=== PATIENT | male | born 1960 | race African-American/Black ===

== ENCOUNTER 2019-06-26 12:46 | Inpatient (IN) | payer OTHER ==
[2019-06-26 14:13] VITALS: BMI 22.3
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
[2019-06-26] MEDS ORDERED: NICOTINE POLACRILEX 2 MG GUM BUC PRN (17:49)
[2019-06-26] MEDS ORDERED: MENTHOL/PHENOL 1 EACH UD MM PRN (17:49)
[2019-06-26] MEDS ORDERED: ONDANSETRON *ODT* 4 MG TABLET SL PRN (17:49)
[2019-06-26] MEDS ORDERED: MELATONIN 5 MG TABLETS PO PRN (17:49)
[2019-06-26] MEDS ORDERED: hydrOXYzine PAMOATE 25 MG CAPSULE (FP) PO PRN (17:49)
[2019-06-26] MEDS ORDERED: P-EPHED 60MG/TRIPROLIDI 2.5MG TABLET PO PRN (17:49)
[2019-06-26] MEDS ORDERED: IBUPROFEN 400 MG TABLET (FP) PO PRN (17:49)
[2019-06-26] MEDS ORDERED: BISMUTH SUBSALICYLATE 524 MG/30 ML UD PO PRN (17:49)
[2019-06-26] MEDS ORDERED: ALBUTEROL SO4 8 GM HFA INHALER IH PRN (17:49)
[2019-06-26] MEDS ORDERED: guaiFENesin 200 MG/10 ML 10 ML UNIT-DOSE CUPS PO PRN (17:49)
[2019-06-26] MEDS ORDERED: MAGNESIUM CITRATE 300 ML BOTTLE PO PRN (17:49)
[2019-06-26] MEDS ORDERED: MAGNESIUM HYDROX 2400MG/30ML ORAL SUSPENSION 30 ML CUP PO PRN (17:49)
[2019-06-26] MEDS ORDERED: DICYCLOMINE HCL 10 MG CAPSULE PO PRN (17:49)
[2019-06-26] MEDS ORDERED: MAG HYDROX/AL HYDROX/SIMETH 30 ML UNIT-DOSE CUP PO PRN (17:49)
[2019-06-26] MEDS ORDERED: ACETAMINOPHEN 325 MG TABLET (FP) PO PRN ×2 (17:49)
[2019-06-26] MEDS ORDERED: METHADONE HCL 10 MG TABLET (FOR DETOX USE ONLY) PO ONE (21:15)
[2019-06-26] MEDS ORDERED: NALOXONE HCL 0.4 MG/ML VIAL IM PRN (21:15)
[2019-06-26] MEDS ORDERED: cloNIDine HCL 0.1 MG TABLET PO PRN (21:15)
[2019-06-26] MEDS: BACITRACIN 15 GM TUBE TOPICAL OINTMENT TP SCH (21:16)
[2019-06-26] MEDS: GABAPENTIN 300 MG CAPSULE (FP) PO SCH (21:42)
[2019-06-26] MEDS: THIAMINE HCL 100 MG TABLET (FP) PO SCH (21:42)
[2019-06-27] MEDS ORDERED: METHADONE HCL 5 MG TABLET (FOR DETOX USE ONLY) PO ONE (10:00)
[2019-06-27] MEDS: GABAPENTIN 300 MG CAPSULE (FP) PO SCH ×2 (10:52→22:40)
[2019-06-27] MEDS: TAMSULOSIN HCL 0.4 MG CAP PO SCH (10:52)
[2019-06-27] MEDS: NICOTINE 14 MG/24 HOURS TOPICAL PATCH TD SCH (10:52)
[2019-06-27] MEDS: PRENATAL VITAMINS W/ FOLIC ACID TABLET (FP) PO SCH (10:52)
[2019-06-27] MEDS: BACITRACIN 15 GM TUBE TOPICAL OINTMENT TP SCH ×2 (10:53→22:00)
--- NOTE | 2019-06-27 11:41 | EKG ---
Test Reason : Blood Pressure : / mmHG Vent. Rate : 052 BPM Atrial Rate : 052 BPM P-R Int : 134 ms QRS Dur : 088 ms QT Int : 450 ms P-R-T Axes : 062 072 060 degrees QTc Int : 418 ms SINUS BRADYCARDIA OTHERWISE NORMAL ECG NO PREVIOUS ECGS AVAILABLE Confirmed by FRANCISCA DEUTSCH, JAGRUTI ([id number]) on 06/27/2019 11:41:35 AM Referred By: PABLO ANGUIANO Confirmed By:JAGRUTI ESPINOSA MD
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
[2019-06-27 12:34] LABS: ALBUMIN 2.8 g/dl (3.4-5.0); BILIRUBIN,TOTAL 0.5 mg/dL (0.2-1); BLOOD UREA NITROGEN 10.8 mg/dL (7-18); CALCIUM 8.9 mg/dL (8.5-10.1); POTASSIUM 4.2 mmol/L (3.5-5.1); TOT PROT 5.8 g/dl (6.4-8.2)
[2019-06-27 13:29] LABS: HEMATOCRIT 37.9 % (35.4-49); HEMOGLOBIN 12.6 GM/dL (11.7-16.9); MCHC 33.2 g/dl (32.0-35.9); MEAN CELL VOLUME 96.5 fl (80-96); MEAN PLT VOLUME 7.8 fl (7.5-11.1); PLATELET COUNT 285 K/MM3 (134-434); RBC 3.93 M/mm3 (4.00-5.60); RDW 14.2 % (11.9-15.9); WHITE BLOOD COUNT 5.4 K/mm3 (4.0-10.0)
--- NOTE | 2019-06-27 16:20 | PN ---
BHS COWS - Scale Resting Pulse: 0= [place] 80 or Below Sweatin= Chills/Flushing Restless Observation: 0= Sits Still Pupil Size: 0= Normal to Room Light Bone or Joint Aches: 2= Severe Diffuse Aches Runny Nose/ Eye Tearin= None GI Upset > 30mins: 2= Nausea/Diarrhea Tremor Observation of Outstretched Hands: 0= None Yawning Observation: 1= 1-2x During Session Anxiety or Irritability: 2=Irritable/Anxious Goose Flesh Skin: 3=Piloerection COWS Score: 11 BHS Progress Note (SOAP) Subjective: Body Aches, Anxious, Fatigue, Interrupted Sleep. Objective: PATIENT A & O X 2 (UNCERTAIN ABOUT CURRENT DAY / DATE). IN NO ACUTE DISTRESS. 06/27/19 16:23 Vital Signs Temperature 98.1 F 06/27/19 13:40 Pulse Rate 73 06/27/19 13:40 Respiratory Rate 16 06/27/19 13:40 Blood Pressure 112/66 06/27/19 13:40 O2 Sat by Pulse Oximetry (%) Laboratory Tests 06/27/19 06/27/19 07:30 07:30 WBC 5.4 RBC 3.93 L Hgb 12.6 Hct 37.9 MCV 96.5 H MCH 32.0 MCHC 33.2 RDW 14.2 Plt Count 285 MPV 7.8 Sodium 146 H Potassium 4.2 Chloride 112 H Carbon Dioxide 27 Anion Gap 7 L BUN 10.8 Creatinine 1.0 Est GFR (CKD-EPI)AfAm 97.08 Est GFR (CKD-EPI)NonAf 83.76 Random Glucose 87 Calcium 8.9 Total Bilirubin 0.5 AST 16 ALT 12 L Alkaline Phosphatase 81 Total Protein 5.8 L Albumin 2.8 L LABS NOTED. RESULTS OF DETOX ADMISSION QFT /TB AND RPR TESTS PENDING. 06/27/19 16:24 Assessment: 06/27/19 16:23 WITHDRAWAL SYMPTOMS. Plan: CONTINUE DETOX.
[2019-06-27 20:45] LABS: URINE APPEARANCE CLEAR; URINE BILIRUBIN NEGATIVE (NEGATIVE); URINE COLOR YELLOW; URINE GLUCOSE (UA) NEGATIVE (NEGATIVE); URINE KETONE TRACE (NEGATIVE); URINE LEUK ESTERASE NEGATIVE (NEGATIVE); URINE NITRITE NEGATIVE (NEGATIVE); URINE PROTEIN NEGATIVE (NEGATIVE)
[2019-06-27] MEDS: THIAMINE HCL 100 MG TABLET (FP) PO SCH (22:40)
[2019-06-28] MEDS: BACITRACIN 15 GM TUBE TOPICAL OINTMENT TP SCH ×2 (09:41→22:45)
[2019-06-28] MEDS: TAMSULOSIN HCL 0.4 MG CAP PO SCH (09:42)
[2019-06-28] MEDS: GABAPENTIN 300 MG CAPSULE (FP) PO SCH ×2 (09:42→22:41)
[2019-06-28] MEDS: PRENATAL VITAMINS W/ FOLIC ACID TABLET (FP) PO SCH (09:43)
[2019-06-28] MEDS: NICOTINE 14 MG/24 HOURS TOPICAL PATCH TD SCH (09:43)
--- NOTE | 2019-06-28 09:59 | PN ---
S CIWA - CIWA Score Nausea/Vomitin-Mild Nausea/No Vomiting Muscle Tremors: 3 Anxiety: 1-Mildly Anxious Agitation: 1-Slight > Activity Paroxysmal Sweats: No Perspiration Orientation: 0-Oriented Tacttile Disturbances: 0-None Auditory Disturbances: 0-None Visual Disturbances: 0-None Headache: 1-Very Mild CIWA-Ar Total Score: 7 S Progress Note (SOAP) Subjective: Patient has few complaints. Seen in bed and very sleepy. Objective: 06/28/19 09:55 BP:112/65 P:63 R:18 T:96.7 Abnormal Lab Results 06/27/19 06/27/19 06/27/19 07:30 07:30 18:00 RBC 3.93 L MCV 96.5 H Sodium 146 H Chloride 112 H Anion Gap 7 L ALT 12 L Total Protein 5.8 L Albumin 2.8 L Urine Ketones Trace H Assessment: 06/28/19 09:56 1. Alcohol Dependence 2. Abnormal Labs 3. EKG results Plan: 1. Continue detox protocol. Encourage PO Fluids. Patient is apparently dehydrated from high sodium. Prn medications for symptom relief of withdrawals. 2. Low TP and Alb consistent with poor nutrition. Hypernatremia consistent with poor hydration. Hyperchloremia can also be due to dehydration. 3. EKG results reviewed and normal.
[2019-06-28] MEDS ORDERED: METHADONE HCL 10 MG TABLET (FOR DETOX USE ONLY) PO ONE (10:00)
[2019-06-28] MEDS: THIAMINE HCL 100 MG TABLET (FP) PO SCH (22:41)
[2019-06-28] MEDS: METHOCARBAMOL 500 MG TABLET PO PRN (22:43)
[2019-06-29] MEDS ORDERED: METHADONE HCL 5 MG TABLET (FOR DETOX USE ONLY) PO ONE (06:00)
[2019-06-29] MEDS: METHOCARBAMOL 500 MG TABLET PO PRN (06:03)
[2019-06-29 07:04] VITALS: BP 115/64; PULSE 68; TEMP 98.1
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
[2019-06-29] MEDS: PRENATAL VITAMINS W/ FOLIC ACID TABLET (FP) PO SCH (09:39)
[2019-06-29] MEDS: NICOTINE 14 MG/24 HOURS TOPICAL PATCH TD SCH (09:40)
[2019-06-29] MEDS: TAMSULOSIN HCL 0.4 MG CAP PO SCH (09:41)
[2019-06-29] MEDS: GABAPENTIN 300 MG CAPSULE (FP) PO SCH (09:41)
[2019-06-29] MEDS: BACITRACIN 15 GM TUBE TOPICAL OINTMENT TP SCH (09:42)
--- NOTE | 2019-06-29 13:38 | DS ---
[facility] Detox Discharge Summary Admission Date: 06/26/19 Discharge Date: 06/29/19 - History Present History: Cocaine Dependence, Opioid Dependence Additional Comments: Pt is medically cleared and is discharged today. Pt has completed his detox protocol. Pt is encouraged to follow-up with CD outpatient program and also to follow-up with his PMD. Pt verbalized understanding. Pt states he has enough refills on his home meds. Pt is alert and oriented x3 and in no respiratory distress. Pertinent Past History: H/O seizures, BPH, asthma, heroin, and cocaine use disorder. - Physical Exam Results Vital Signs: Vital Signs Temperature 98.1 F 06/29/19 06:00 Pulse Rate 68 06/29/19 06:00 Respiratory Rate 18 06/29/19 06:00 Blood Pressure 115/64 06/29/19 06:00 O2 Sat by Pulse Oximetry (%) Vital Signs 06/29/19 06:00 Temperature 98.1 F Pulse Rate 68 Respiratory 18 Rate Blood Pressure 115/64 Lab Results WBC 5.4 K/mm3 (4.0-10.0) 06/27/19 07:30 RBC 3.93 M/mm3 (4.00-5.60) L 06/27/19 07:30 Hgb 12.6 GM/dL (11.7-16.9) 06/27/19 07:30 Hct 37.9 % (35.4-49) 06/27/19 07:30 MCV 96.5 fl (80-96) H 06/27/19 07:30 MCHC 33.2 g/dl (32.0-35.9) 06/27/19 07:30 RDW 14.2 % (11.9-15.9) 06/27/19 07:30 Plt Count 285 K/MM3 (134-434) 06/27/19 07:30 Sodium 146 mmol/L (136-145) H 06/27/19 07:30 Potassium 4.2 mmol/L (3.5-5.1) 06/27/19 07:30 Chloride 112 mmol/L (98-107) H 06/27/19 07:30 Carbon Dioxide 27 mmol/L (21-32) 06/27/19 07:30 Anion Gap 7 MMOL/L (8-16) L 06/27/19 07:30 BUN 10.8 mg/dL (7-18) 06/27/19 07:30 Creatinine 1.0 mg/dL (0.55-1.3) 06/27/19 07:30 Random Glucose 87 mg/dL (74-106) 06/27/19 07:30 Calcium 8.9 mg/dL (8.5-10.1) 06/27/19 07:30 Labs noted. Pertinent Admission Physical Exam Findings: withdrawal symptoms. - Treatment Hospital Course: Detox Protocol Followed, Detoxed Safely, Responded well, Discharged Condition Good - Medication Discharge Medications: Ambulatory Orders Albuterol Sulfate Inhaler - [Ventolin Hfa Inhaler -] 2 inh PO Q6H PRN 06/26/19 Gabapentin [Neurontin -] 600 mg PO BID 06/26/19 Oxycodone HCl/Acetaminophen [Percocet 10-325 mg Tablet] 1 each PO TID 06/26/19 Tamsulosin HCl [Flomax] 0.4 mg PO DAILY 06/26/19 - Diagnosis (1) Cocaine dependence, uncomplicated Status: Acute (2) Opioid dependence with withdrawal Status: Acute (3) Arthritis of both knees Status: Chronic (4) Arthritis of shoulder Status: Chronic (5) Asthma Status: Chronic Qualifiers: Asthma severity: mild Asthma persistence: intermittent Asthma complication type: unspecified Qualified Code(s): J45.20 - Mild intermittent asthma, uncomplicated (6) BPH (benign prostatic hyperplasia) Status: Chronic Qualifiers: Lower urinary tract symptom presence: symptoms present Lower urinary tract symptom detail: urinary hesitancy Qualified Code(s): N40.1 - Benign prostatic hyperplasia with lower urinary tract symptoms; R39.11 - Hesitancy of micturition (7) Herniated lumbar intervertebral disc Status: Chronic (8) History of seizures Status: Chronic (9) Nicotine dependence Status: Chronic - AMA Did Patient Leave Against Medical Advice: No
== END 2019-06-29 09:41 | disposition home or self-care (01) | DRG 773 ==
LOC: YASAS 12:46 → Y6N 18:05
PROVIDERS: ADMIT Surgery; ATTEND Surgery
PROC: HZ2ZZZZ Detoxification Services for Substance Abuse Treatment (ICD-10-PCS; principal; 2019-06-26)
DX: F11.23 Opioid dependence with withdrawal (principal); F14.20 Cocaine dependence, uncomplicated; F17.210 Nicotine dependence, cigarettes, uncomplicated; F31.9 Bipolar disorder, unspecified; J45.20 Mild intermittent asthma, uncomplicated; M51.26 Other intervertebral disc displacement, lumbar region; M13.862 Other specified arthritis, left knee; M13.861 Other specified arthritis, right knee; M13.812 Other specified arthritis, left shoulder; M13.811 Other specified arthritis, right shoulder; N40.1 Benign prostatic hyperplasia with lower urinary tract symptoms; R39.11 Hesitancy of micturition; R45.89 Other symptoms and signs involving emotional state; R23.4 Changes in skin texture; R26.89 Other abnormalities of gait and mobility; Z99.89 Dependence on other enabling machines and devices; S01.511A Laceration without foreign body of lip, initial encounter; S91.311A Laceration without foreign body, right foot, initial encounter; Y04.2XXA Assault by strike against or bumped into by another person, initial encounter; Y93.89 Activity, other specified; Y92.238 Other place in hospital as the place of occurrence of the external cause; Y99.8 Other external cause status; W27.8XXA Contact with other nonpowered hand tool, initial encounter; Y93.E8 Activity, other personal hygiene; Y92.230 Patient room in hospital as the place of occurrence of the external cause
CPT/HCPCS: 36415; 80053; 81003; 85027; 86480; 86593; 93005; 93010

== ENCOUNTER 2019-07-22 19:41 | Inpatient (IN) | payer OTHER ==
[2019-07-22 23:49] VITALS: BMI 21.1
--- NOTE | 2019-07-23 02:30 | PN ---
S CIWA - CIWA Score Nausea/Vomitin Muscle Tremors: None Anxiety: 3 Agitation: 4-Moderately Restless Paroxysmal Sweats: 3 Orientation: 1-Uncertain about Date Tacttile Disturbances: 2-Mild Itch/Numbness/Burn Auditory Disturbances: 0-None Visual Disturbances: 0-None Headache: 3-Moderate CIWA-Ar Total Score: 19 BHS COWS - Scale Resting Pulse: 0= [place] 80 or Below Sweatin= Chills/Flushing Restless Observation: 1= Difficult to Sit Still Pupil Size: 0= Normal to Room Light Bone or Joint Aches: 4=Acute Joint/Muscle Pain Runny Nose/ Eye Tearin= Nasal Congestion GI Upset > 30mins: 1= Stomach Cramp Tremor Observation of Outstretched Hands: 0= None Yawning Observation: 1= 1-2x During Session Anxiety or Irritability: 2=Irritable/Anxious Goose Flesh Skin: 0=Smooth Skin COWS Score: 11 BHS Progress Note (SOAP) Subjective: here for alcohol and heroin detox. heroin started age 18 using 6 bags daily/ sniff last use 1 day ago vodka started age 8 drinking 2 pints daily last use 1 day ago pmhx-oa, asthma psych- bipolar Objective: 07/23/19 02:28 Vital Signs Temperature 97.7 F 07/22/19 23:46 Pulse Rate 73 07/22/19 23:46 Respiratory Rate 16 07/22/19 23:46 Blood Pressure 105/72 07/22/19 23:46 O2 Sat by Pulse Oximetry (%) Allergies Allergy/AdvReac Type Severity Reaction Status Date / Time No Known Allergies Allergy Verified 07/22/19 23:43 utox + mariela, mop, oxy, mtd, bzo awake, alert, irritable perrla cv- rrr lungs ctab skin dry intact extrem from x4 C/O STIFFNESS Assessment: 07/23/19 07:54 F10.23 F11.23 F14.20 F13.20 Plan: ADMIT TO DETOX METH/VICTORIANO PROTOCOL
[2019-07-23] MEDS ORDERED: ACETAMINOPHEN 325 MG TABLET (FP) PO PRN ×2 (02:32)
[2019-07-23] MEDS ORDERED: METHADONE HCL 10 MG TABLET (FOR DETOX USE ONLY) PO ONE (02:32)
[2019-07-23] MEDS ORDERED: cloNIDine HCL 0.1 MG TABLET PO PRN (02:32)
[2019-07-23] MEDS ORDERED: MAG HYDROX/AL HYDROX/SIMETH 30 ML UNIT-DOSE CUP PO PRN (02:32)
[2019-07-23] MEDS ORDERED: P-EPHED 60MG/TRIPROLIDI 2.5MG TABLET PO PRN (02:32)
[2019-07-23] MEDS ORDERED: DICYCLOMINE HCL 10 MG CAPSULE PO PRN (02:32)
[2019-07-23] MEDS ORDERED: MENTHOL/PHENOL 1 EACH UD MM PRN (02:32)
[2019-07-23] MEDS ORDERED: MAGNESIUM HYDROX 2400MG/30ML ORAL SUSPENSION 30 ML CUP PO PRN (02:32)
[2019-07-23] MEDS ORDERED: chlordiazePOXIDE HCL 25 MG CAPSULE PO PRN (02:32)
[2019-07-23] MEDS ORDERED: BISMUTH SUBSALICYLATE 524 MG/30 ML UD PO PRN (02:32)
[2019-07-23] MEDS ORDERED: NICOTINE POLACRILEX 2 MG GUM BUC PRN (02:32)
[2019-07-23] MEDS ORDERED: METHOCARBAMOL 500 MG TABLET PO PRN (02:32)
[2019-07-23] MEDS ORDERED: hydrOXYzine PAMOATE 25 MG CAPSULE (FP) PO PRN (02:32)
[2019-07-23] MEDS ORDERED: MELATONIN 5 MG TABLETS PO PRN (02:32)
[2019-07-23] MEDS ORDERED: ONDANSETRON *ODT* 4 MG TABLET SL PRN (02:32)
[2019-07-23] MEDS ORDERED: MAGNESIUM CITRATE 300 ML BOTTLE PO PRN (02:32)
[2019-07-23] MEDS ORDERED: guaiFENesin 200 MG/10 ML 10 ML UNIT-DOSE CUPS PO PRN (02:32)
[2019-07-23] MEDS: chlordiazePOXIDE HCL 25 MG CAPSULE PO SCH ×4 (07:41→22:32)
[2019-07-23] MEDS ORDERED: METHADONE HCL 5 MG TABLET (FOR DETOX USE ONLY) PO ONE (10:00)
[2019-07-23] MEDS: PRENATAL VITAMINS W/ FOLIC ACID TABLET (FP) PO SCH (10:56)
[2019-07-23] MEDS: NICOTINE 21 MG/24 HOURS TOPICAL PATCH TD SCH (10:59)
[2019-07-23] MEDS: IBUPROFEN 400 MG TABLET (FP) PO PRN ×2 (10:59→22:40)
--- NOTE | 2019-07-23 13:03 | PN ---
[facility] CIWA - CIWA Score Nausea/Vomitin-Mild Nausea/No Vomiting Muscle Tremors: 4-Moderate,w/Arms Extend Anxiety: 3 Agitation: 2 Paroxysmal Sweats: 1-Minimal Palms Moist Orientation: 3-Disoriented Date>2 days Tacttile Disturbances: 1-Very Mild Itch/Numbness Auditory Disturbances: 0-None Visual Disturbances: 0-None Headache: 0-None Present CIWA-Ar Total Score: 15 S COWS - Scale Resting Pulse: 0= [place] 80 or Below Sweatin= Chills/Flushing Restless Observation: 0= Sits Still Pupil Size: 0= Normal to Room Light Bone or Joint Aches: 1= Mild Discomfort Runny Nose/ Eye Tearin= Nasal Congestion GI Upset > 30mins: 1= Stomach Cramp Tremor Observation of Outstretched Hands: 2= Slight Tremor Visible Yawning Observation: 0= None Anxiety or Irritability: 2=Irritable/Anxious Goose Flesh Skin: 3=Piloerection COWS Score: 11 S Progress Note (SOAP) Subjective: 58 years old male 2nd patient [facility] admission was admitted on 07/23/19 for alcohol and opiate withdrawal sx management doing well with librium and methadone detox regimen but irritable poor eye contact prefers to sleep in bed ambulating from bed to bathroom steady gait Objective: 07/23/19 13:05 Vital Signs Temperature 96.7 F L 07/23/19 09:12 Pulse Rate 58 L 07/23/19 09:12 Respiratory Rate 18 07/23/19 09:12 Blood Pressure 106/68 07/23/19 09:12 O2 Sat by Pulse Oximetry (%) 07/23/19 13:05 lab see previous Assessment: 07/23/19 13:05 alcohol and opiate withdrawal sx Plan: continue librium and methadone detox regimen
--- NOTE | 2019-07-23 15:32 | HP ---
COWS - Scale Resting Pulse: 0= [place] 80 or Below Sweatin= Chills/Flushing Restless Observation: 0= Sits Still Pupil Size: 0= Normal to Room Light Bone or Joint Aches: 1= Mild Discomfort Runny Nose/ Eye Tearin= Nasal Congestion GI Upset > 30mins: 1= Stomach Cramp Tremor Observation: 1= Tremor [place], Not Seen Yawning Observation: 1= 1-2x During Session Anxiety or Irritability: 2=Irritable/Anxious Goose Flesh Skin: 3=Piloerection COWS Score: 11 CIWA Score Nausea/Vomitin-Mild Nausea/No Vomiting Muscle Tremors: 4-Moderate,w/Arms Extend Anxiety: 3 Agitation: 2 Paroxysmal Sweats: 1-Minimal Palms Moist Orientation: 3-Disoriented Date>2 days Tacttile Disturbances: 1-Very Mild Itch/Numbness Auditory Disturbances: 0-None Visual Disturbances: 0-None Headache: 0-None Present CIWA-Ar Total Score: 15 - Admission Criteria OASAS Guidelines: Admission for Medically Managed Detox: Requires at least one of the followin. CIWA greater than 12 2. Seizures within the past 24 hours 3. Delirium tremens within the past 24 hours 4. Hallucinations within the past 24 hours 5. Acute intervention needed for co occurring medical disorder 6. Acute intervention needed for co occurring psychiatric disorder 7. Severe withdrawal that cannot be handled at a lower level of care (continued vomiting, continued diarrhea, abnormal vital signs) requiring intravenous medication and/or fluids 8. Patient presents the following: CIWA greater than 12 Admission Criteria Met: Admission criteria met Admission ROS [facility] Chief Complaint: alcohol and opioid withdrawal sx Allergies/Adverse Reactions: Allergies Allergy/AdvReac Type Severity Reaction Status Date / Time No Known Allergies Allergy Verified 07/22/19 23:43 History of Present Illness: 58 years old male 2nd patient [facility] admission admitted for alcohol opioid withdrawal sx management drinking alcohol since age 16 drink 3 1/2 pints vodka daily using heroin 4 bags daily since age 47 history of asthma and cigarette smoker Exam Limitations: No Limitations - Ebola screening Have you traveled outside of the country in the last 21 days: No (N) Have you had contact with anyone from an Ebola affected area: No Do you have a fever: No - Review of Systems Constitutional: No Symptoms Reported, Loss of Appetite, Changes in sleep, Unintentional Wgt. Loss EENT: reports: No Symptoms Reported Respiratory: reports: No Symptoms reported Cardiac: reports: No Symptoms Reported GI: reports: Nausea, Poor Appetite, Poor Fluid Intake, Abdominal cramping : reports: No Symptoms Reported Musculoskeletal: reports: Back Pain, Joint Pain, Muscle Pain, Neck Pain Integumentary: reports: No Symptoms Reported Neuro: reports: Tingling, Tremors Endocrine: reports: No Symptoms Reported Hematology: reports: No Symptoms Reported Psychiatric: reports: Judgement Intact, Mood/Affect Appropiate, Anxious Other Systems: Reviewed and Negative Patient History - Patient Medical History Hx Anemia: No Hx Asthma: Yes Hx Chronic Obstructive Pulmonary Disease (COPD): No Hx Cancer: No Hx Cardiac Disorders: No Hx Congestive Heart Failure: No Hx Hypertension: No Hx Hypercholesterolemia: No Hx Pacemaker: No HX Cerebrovascular Accident: No Hx Seizures: Yes Hx Dementia: No Hx Diabetes: No Hx Gastrointestinal Disorders: No Hx Liver Disease: No Hx Genitourinary Disorders: No Hx Sexually Transmitted Disorders: No Hx Renal Disease (ESRD): No Hx Thyroid Disease: No Hx Human Immunodeficiency Virus (HIV): No Hx Hepatitis C: No Hx Depression: No Hx Suicide Attempt: No Hx Bipolar Disorder: Yes (NO MEDS) Hx Schizophrenia: No - Patient Surgical History Past Surgical History: Yes Hx Neurologic Surgery: No Hx Cataract Extraction: No Hx Cardiac Surgery: No Hx Lung Surgery: No Hx Breast Surgery: No Hx Breast Biopsy: No Hx Abdominal Surgery: No Hx Appendectomy: No Hx Cholecystectomy: No Hx Genitourinary Surgery: No Hx Section: No Hx Orthopedic Surgery: No Other Surgical History: REPAIR OF R NECK LACERATION Anesthesia Reaction: No - PPD History Previous Implant?: Yes Documented Results: Negative w/proof Implanted On Prior R Admission?: Yes PPD to be Administered?: No - Reproductive History Patient : No - Smoking Cessation Smoking history: Current every day smoker Have you smoked in the past 12 months: Yes Aproximately how many cigarettes per day: 10 Cigars Per Day: 0 Hx Chewing Tobacco Use: No Initiated information on smoking cessation: Yes 'Breaking Loose' booklet given: 07/23/19 - Substance & Tx. History Hx Alcohol Use: Yes Hx Substance Use: Yes Substance Use Type: Alcohol, Heroin Hx Substance Use Treatment: Yes ([facility]) - Substances abused Heroin Substance route: Inhalation Frequency: Daily Amount used: 4 BAGS Age of first use: 47 Date of last use: 07/22/19 Crack Substance route: Smoking Frequency: Daily Amount used: $50 Age of first use: 32 Date of last use: 07/22/19 Alcohol Substance route: Oral Frequency: Daily Amount used: 3 1/2 pints of vodka/gin Age of first use: 16 Date of last use: 07/22/19 Family Disease History - Family Disease History Family Disease History: Diabetes: Father (), CA: Mother () Admission Physical Exam S - Vital Signs Vital Signs: Vital Signs - 24 hr 07/22/19 07/23/19 07/23/19 23:46 03:02 04:05 Temperature 97.7 F 96.8 F L Pulse Rate 73 66 Respiratory 16 18 18 Rate Blood Pressure 105/72 105/64 07/23/19 09:12 Temperature 96.7 F L Pulse Rate 58 L Respiratory 18 Rate Blood Pressure 106/68 - Physical General Appearance: Yes: Within Normal Limits, Mild Distress, Thin, Tremorous, Irritable, Sweating, Anxious HEENTM: Yes: Normocephalic Respiratory: Yes: Decreased Breath Sounds, No Accessory Muscle Use, Crackles, Rhonchi, Wheezing, Hyperresonant, Dullness Neck: Yes: Supple, Trachea in good position Breast: Yes: Within Normal Limits, Axillae without masses, Breasts Symetrical, No Discharge, No masses Cardiology: Yes: Within Normal Limits, S1, S2 Abdominal: Yes: Normal Bowel Sounds, Non Tender, Flat, Soft Genitourinary: Yes: Within Normal Limits Back: Yes: Normal Inspection Musculoskeletal: Yes: full range of Motion, Gait Steady, Back pain, Muscle Pain Extremities: Yes: Normal Range of Motion, Non-Tender, Tremors Neurological: Yes: Alert, Normal Mood/Affect, Numbness Integumentary: Yes: Warm Lymphatic: Yes: Within Normal Limits - Diagnostic (1) Opioid dependence with withdrawal Current Visit: Yes Status: Acute (2) Ambulates with cane Current Visit: Yes Status: Chronic (3) Asthma Current Visit: Yes Status: Chronic Qualifiers: Asthma severity: mild Asthma persistence: intermittent Asthma complication type: unspecified Qualified Code(s): J45.20 - Mild intermittent asthma, uncomplicated (4) BPH (benign prostatic hyperplasia) Current Visit: Yes Status: Chronic Qualifiers: Lower urinary tract symptom presence: symptoms present Lower urinary tract symptom detail: urinary hesitancy Qualified Code(s): N40.1 - Benign prostatic hyperplasia with lower urinary tract symptoms; R39.11 - Hesitancy of micturition (5) Nicotine dependence Current Visit: Yes Status: Acute Qualifiers: Nicotine product type: cigarettes Substance use status: in withdrawal Qualified Code(s): F17.213 - Nicotine dependence, cigarettes, with withdrawal Cleared for Admission [facility] - Detox or Rehab [facility] Level of Care: Medically Managed Detox Regimen/Protocol: Methadone/Librium Breathalyzer - Breathalyzer Breathalyzer: 0 Urine Drug Screen - Test Device Lot number: [id number] Expiration date: 04/05/21 - Control Is test valid?: Yes - Results Drug screen NEGATIVE: No Urine drug screen results: SOL-Cocaine, MOP-Opiates, OXY-Oxycodone, MTD- Methadone, BZO-Benzodiazepines Inpatient Rehab Admission - Rehab Decision to Admit Inpatient rehab admission?: No - Initial Determination Are CD services needed?: No Free of communicable disease: No Not in need of hospitalization: No - Rehab Admission Criteria Previous failed treatment: No Poor recovery environment: No Comorbidities: No Lacks judgement: No Patient is meeting Inpatient Rehab admission criteria:: No
[2019-07-23] MEDS ORDERED: ALBUTEROL SO4 8 GM HFA INHALER IH PRN (15:54)
[2019-07-23] MEDS: THIAMINE HCL 100 MG TABLET (FP) PO SCH (22:31)
[2019-07-23] MEDS: BUDESONIDE/FORMETEROL FUMARATE 80/4.5 mcg INHALER IH SCH (22:31)
[2019-07-24] MEDS: chlordiazePOXIDE HCL 25 MG CAPSULE PO SCH ×4 (06:20→22:25)
[2019-07-24] MEDS ORDERED: METHADONE HCL 10 MG TABLET (FOR DETOX USE ONLY) ONE (08:13)
[2019-07-24] MEDS ORDERED: METHADONE HCL 5 MG TABLET (FOR DETOX USE ONLY) ONE (08:14)
[2019-07-24] MEDS ORDERED: METHADONE (DETOX) 20 MG, METHADONE (DETOX) 5 MG PO ONE (10:00)
[2019-07-24] MEDS: PRENATAL VITAMINS W/ FOLIC ACID TABLET (FP) PO SCH (10:53)
[2019-07-24] MEDS: NICOTINE 21 MG/24 HOURS TOPICAL PATCH TD SCH (10:53)
[2019-07-24] MEDS: BUDESONIDE/FORMETEROL FUMARATE 80/4.5 mcg INHALER IH SCH ×2 (10:53→22:25)
--- NOTE | 2019-07-24 12:06 | PN ---
[facility] CIWA - CIWA Score Nausea/Vomitin-Mild Nausea/No Vomiting Muscle Tremors: 3 Anxiety: 3 Agitation: 2 Paroxysmal Sweats: 2 Orientation: 0-Oriented Tacttile Disturbances: 0-None Auditory Disturbances: 0-None Visual Disturbances: 0-None Headache: 0-None Present CIWA-Ar Total Score: 11 S COWS - Scale Resting Pulse: 0= [place] 80 or Below Sweatin= Chills/Flushing Restless Observation: 0= Sits Still Pupil Size: 0= Normal to Room Light Bone or Joint Aches: 1= Mild Discomfort Runny Nose/ Eye Tearin= Nasal Congestion GI Upset > 30mins: 2= Nausea/Diarrhea Tremor Observation of Outstretched Hands: 2= Slight Tremor Visible Yawning Observation: 2= >3x During Session Anxiety or Irritability: 2=Irritable/Anxious Goose Flesh Skin: 0=Smooth Skin COWS Score: 11 [facility] Progress Note (SOAP) Subjective: doing well with librium and methadone detox regimen sleep better at night less tremor mild anxiety limited conversation with the staff Objective: 07/24/19 12:09 Vital Signs Temperature 98.5 F 07/24/19 09:31 Pulse Rate 79 07/24/19 09:31 Respiratory Rate 17 07/24/19 09:31 Blood Pressure 104/66 07/24/19 09:31 O2 Sat by Pulse Oximetry (%) 07/24/19 12:10 lab see 06/2019 Assessment: 07/24/19 12:10 alcohol and opiate withdrawal sx Plan: continue librium and methadone detox regimen
--- NOTE | 2019-07-24 14:17 | CONSULT ---
[facility] Psychiatric Consult - Data Date of interview: 07/24/19 Admission source: [facility] Identifying data: Readmission to [facility] for this 58 y/o AA male self- referred for detoxification (heroin, cocaine, alcohol). Seen at [address] [place] [address]. Patient is single, no dependents, homeless, unemployed and supported on food stamps. Substance Abuse History: Confirmed by patient. Details in current [facility] report as follows : Smoking history: Current every day smoker. Have you smoked in the past 12 months: Yes. Aproximately how many cigarettes per day: 10. Cigars Per Day: 0. Hx Chewing Tobacco Use: No. Initiated information on smoking cessation : Yes. 'Breaking Loose' booklet given: 07/23/19. - Substance & Tx. History. Hx Alcohol Use: Yes. Hx Substance Use: Yes. Substance Use Type: Alcohol, Heroin. Hx Substance Use Treatment: Yes ([facility]). - Substances abused. Heroin. Substance route: Inhalation. Frequency: Daily. Amount used: 4 BAGS. Age of first use: 47. Date of last use: 07/22/19. Crack. Substance route: Smoking. Frequency: Daily. Amount used: $50. Age of first use: 32. Date of last use: 07/22/19. Alcohol. Substance route: Oral. Frequency: Daily. Amount used: 3 1/2 pints of vodka/gin. Age of first use: 16. Date of last use : 07/22/19 Medical History: Medical profile is remarkable for bronchial asthma, arthritis of hands + shoulders + back, drug-related seizure, benign prostatic hyperplasia (BPH), herniated disc and chronic lumbar pain. Psychiatric History: No reported history of psychiatric hospitalizations but the patient indicates that, for a period of nine months (2017), he received psychiatric OPD care at a mental [facility] located in the [place]. Reportedly diagnosed with Bipolar Disorder. Has no recall of names of psychotropic medications prescribed at the time. History of suicide attempt via self- mutilation in 2018 (wrist-cutting). Physical/Sexual Abuse/Trauma History: Patient declies to discuss this domain. Additional Comment: Urine drug screen results: SOL-Cocaine, MOP-Opiates, OXY- Oxycodone, MTD-Methadone, BZO-Benzodiazepines. Noted. Mental Status Exam - Mental Status Exam Alert and Oriented to: Time, Place, Person Cognitive Function: Good Patient Appearance: Unkempt, Disheveled Mood: Withdrawn, Anxious Affect: Mood Congruent, Constricted Patient Behavior: Fatigued, Cooperative Speech Pattern: Clear, Appropriate Voice Loudness: Normal Thought Process: Goal Oriented Thought Disorder: Not Present Hallucinations: Denies Suicidal Ideation: Denies Insight/Judgement: Poor Sleep: Well Appetite: Good Muscle strength/Tone: Normal Gait/Station: Normal Psychiatric Findings - Problem List ([place] 1, 2,3) (1) Opioid dependence with withdrawal Current Visit: Yes Status: Acute (2) Cocaine dependence, uncomplicated Current Visit: Yes Status: Chronic (3) Nicotine dependence Current Visit: Yes Status: Chronic Qualifiers: Nicotine product type: cigarettes Substance use status: in withdrawal Qualified Code(s): F17.213 - Nicotine dependence, cigarettes, with withdrawal (4) Substance induced mood disorder Current Visit: Yes Status: Chronic - Initial Treatment Plan Initial Treatment Plan: Psychoeducation. Sleep hygiene. Detoxification. Support. MAT services explained to the patient. AA/NA meetings. Groups. Motivational counseling. Observation.
[2019-07-24] MEDS: IBUPROFEN 400 MG TABLET (FP) PO PRN (17:13)
[2019-07-24 17:34] LABS: URINE APPEARANCE CLEAR; URINE BILIRUBIN NEGATIVE (NEGATIVE); URINE COLOR YELLOW; URINE GLUCOSE (UA) NEGATIVE (NEGATIVE); URINE KETONE TRACE (NEGATIVE); URINE LEUK ESTERASE NEGATIVE (NEGATIVE); URINE NITRITE NEGATIVE (NEGATIVE); URINE PROTEIN TRACE (NEGATIVE); URINE UROBILINOGEN 0.2 mg/dL (0.2-1.0)
[2019-07-24] MEDS: THIAMINE HCL 100 MG TABLET (FP) PO SCH (22:25)
[2019-07-25] MEDS ORDERED: chlordiazePOXIDE HCL 10 MG CAPSULE PO PRN
[2019-07-25] MEDS: IBUPROFEN 400 MG TABLET (FP) PO PRN (03:01)
[2019-07-25] MEDS ORDERED: chlordiazePOXIDE HCL 10 MG CAPSULE PO SCH (05:00)
[2019-07-25 06:29] VITALS: BP 101/54; PULSE 72; TEMP 99
--- NOTE | 2019-07-25 09:08 | DS ---
[facility] Detox Discharge Summary Admission Date: 07/23/19 Discharge Date: 07/25/19 - History Present History: Alcohol Dependence, Opioid Dependence - Physical Exam Results Vital Signs: Vital Signs Temperature 99 F 07/25/19 06:29 Pulse Rate 72 07/25/19 06:29 Respiratory Rate 16 07/25/19 06:29 Blood Pressure 101/54 L 07/25/19 06:29 O2 Sat by Pulse Oximetry (%) - Treatment Hospital Course: Detox Protocol Followed, Detoxed Safely, Responded well, Discharged Condition Good, Rehab Referral Accepted - Medication Discharge Medications: Ambulatory Orders Albuterol Sulfate Inhaler - [Ventolin HFA Inhaler -] 2 inh PO Q6H PRN 06/26/19 Gabapentin [Neurontin -] 600 mg PO BID 06/26/19 Tamsulosin HCl [Flomax -] 0.4 mg PO DAILY 06/26/19 Budesonide/Formeterol Fumarate [SYMBICORT 80/4.5mcg -] 2 puff IH BID #1 inhaler 07/25/19 - Diagnosis (1) Opioid dependence with withdrawal Current Visit: Yes Status: Acute (2) Ambulates with cane Current Visit: Yes Status: Chronic (3) Asthma Current Visit: Yes Status: Chronic Qualifiers: Asthma severity: mild Asthma persistence: intermittent Asthma complication type: unspecified Qualified Code(s): J45.20 - Mild intermittent asthma, uncomplicated (4) BPH (benign prostatic hyperplasia) Current Visit: Yes Status: Chronic Qualifiers: Lower urinary tract symptom presence: symptoms present Lower urinary tract symptom detail: urinary hesitancy Qualified Code(s): N40.1 - Benign prostatic hyperplasia with lower urinary tract symptoms; R39.11 - Hesitancy of micturition (5) Nicotine dependence Current Visit: Yes Status: Acute Qualifiers: Nicotine product type: cigarettes Substance use status: in withdrawal Qualified Code(s): F17.213 - Nicotine dependence, cigarettes, with withdrawal - AMA Did Patient Leave Against Medical Advice: No
[2019-07-25] MEDS ORDERED: METHADONE HCL 10 MG TABLET (FOR DETOX USE ONLY) PO ONE (10:00)
[2019-07-26] MEDS ORDERED: chlordiazePOXIDE HCL 10 MG CAPSULE PO SCH (05:00)
[2019-07-26] MEDS ORDERED: METHADONE (DETOX) 10 MG, METHADONE (DETOX) 5 MG PO ONE (10:00)
[2019-07-27] MEDS ORDERED: chlordiazePOXIDE HCL 10 MG CAPSULE PO ONE (05:00)
[2019-07-27] MEDS ORDERED: METHADONE HCL 10 MG TABLET (FOR DETOX USE ONLY) PO ONE (10:00)
[2019-07-28] MEDS ORDERED: METHADONE HCL 5 MG TABLET (FOR DETOX USE ONLY) PO ONE (06:00)
== END 2019-07-25 09:30 | disposition home or self-care (01) | DRG 773 ==
LOC: YASAS 19:41 → Y3N 07-23 02:10
PROVIDERS: ADMIT Surgery; ATTEND Surgery
PROC: HZ2ZZZZ Detoxification Services for Substance Abuse Treatment (ICD-10-PCS; principal; 2019-07-23)
DX: F11.23 Opioid dependence with withdrawal (principal); F10.230 Alcohol dependence with withdrawal, uncomplicated; F14.20 Cocaine dependence, uncomplicated; F17.210 Nicotine dependence, cigarettes, uncomplicated; F19.24 Other psychoactive substance dependence with psychoactive substance-induced mood disorder; N40.1 Benign prostatic hyperplasia with lower urinary tract symptoms; J45.20 Mild intermittent asthma, uncomplicated; M19.90 Unspecified osteoarthritis, unspecified site; R26.2 Difficulty in walking, not elsewhere classified; Z99.89 Dependence on other enabling machines and devices; Z86.69 Personal history of other diseases of the nervous system and sense organs; Z91.5 Personal history of self-harm; Z59.0 Homelessness
CPT/HCPCS: 81003

== ENCOUNTER 2019-08-26 15:59 | Inpatient (IN) | payer OTHER ==
[2019-08-26 18:06] VITALS: BMI 20.9
--- NOTE | 2019-08-26 20:28 | HP ---
CIWA Score Nausea/Vomitin (EWAYS2HFI X 2) Muscle Tremors: 3 Anxiety: 3 Agitation: 1-Slight > Activity Paroxysmal Sweats: 3 Orientation: 1-Uncertain about Date Tacttile Disturbances: 0-None Auditory Disturbances: 0-None Visual Disturbances: 0-None Headache: 0-None Present CIWA-Ar Total Score: 14 - Admission Criteria OASAS Guidelines: Admission for Medically Managed Detox: Requires at least one of the followin. CIWA greater than 12 2. Seizures within the past 24 hours 3. Delirium tremens within the past 24 hours 4. Hallucinations within the past 24 hours 5. Acute intervention needed for co occurring medical disorder 6. Acute intervention needed for co occurring psychiatric disorder 7. Severe withdrawal that cannot be handled at a lower level of care (continued vomiting, continued diarrhea, abnormal vital signs) requiring intravenous medication and/or fluids 8. Admitting History and Physical - Smoking History Smoking history: Current every day smoker Have you smoked in the past 12 months: Yes Aproximately how many cigarettes per day: 10 - Alcohol/Substance Use Hx Alcohol Use: Yes Admission ROS [facility] Chief Complaint: Alcohol withdrawal symptoms. Patient is on prescription buprenorphine -naloxone 8-2mg sl film dispensed on 08/14/2019 42 films for 21 days supply. Allergies/Adverse Reactions: Allergies Allergy/AdvReac Type Severity Reaction Status Date / Time No Known Allergies Allergy Verified 08/26/19 18:02 History of Present Illness: 58 years old male with a long history of opioid dependence is seeking admission to detox. from alcohol and opioid. He is on prescription buprenorphine - naloxone 8-2mg sl film dispensed on 08/14/2019 42 films for 21 days supply by [facility]. He was admitted for the period 07/23/2019- 07/25/2019 but reports that he relapsed because of his unhealthy environment. He has medical history of asthma, BPH, Seizure and arthritis. He denies suicidal ideation at this time - Ebola screening Have you traveled outside of the country in the last 21 days: No (N) Have you had contact with anyone from an Ebola affected area: No Do you have a fever: No - Review of Systems Constitutional: Malaise, Night Sweats, Changes in sleep EENT: reports: No Symptoms Reported Respiratory: reports: No Symptoms reported Cardiac: reports: No Symptoms Reported GI: reports: Nausea, Poor Appetite, Poor Fluid Intake, Vomiting (x 2), Abdominal cramping : reports: No Symptoms Reported Musculoskeletal: reports: Back Pain, Joint Pain, Muscle Pain Integumentary: reports: Dryness, Flushing Neuro: reports: Tremors Endocrine: reports: No Symptoms Reported Hematology: reports: No Symptoms Reported Psychiatric: reports: Anxious Other Systems: Reviewed and Negative Patient History - Patient Medical History Hx Anemia: No Hx Asthma: Yes Hx Chronic Obstructive Pulmonary Disease (COPD): No Hx Cancer: No Hx Cardiac Disorders: No Hx Congestive Heart Failure: No Hx Hypertension: No Hx Hypercholesterolemia: No Hx Pacemaker: No HX Cerebrovascular Accident: No Hx Seizures: Yes Hx Dementia: No Hx Diabetes: No Hx Gastrointestinal Disorders: No Hx Liver Disease: No Hx Genitourinary Disorders: No Hx Sexually Transmitted Disorders: No Hx Renal Disease (ESRD): No Hx Thyroid Disease: No Hx Human Immunodeficiency Virus (HIV): No Hx Hepatitis C: No Hx Depression: No Hx Suicide Attempt: No Hx Bipolar Disorder: Yes (NO MEDS) Hx Schizophrenia: No - Patient Surgical History Past Surgical History: Yes Hx Neurologic Surgery: No Hx Cataract Extraction: No Hx Cardiac Surgery: No Hx Lung Surgery: No Hx Breast Surgery: No Hx Breast Biopsy: No Hx Abdominal Surgery: No Hx Appendectomy: No Hx Cholecystectomy: No Hx Genitourinary Surgery: No Hx Section: No Hx Orthopedic Surgery: No Other Surgical History: REPAIR OF R NECK LACERATION Anesthesia Reaction: No - PPD History Previous Implant?: No Implanted On Prior [facility] Admission?: No PPD to be Administered?: No - Reproductive History Patient is a Female of Child Bearing Age (11 -55 yrs old): No (male) - Smoking Cessation Smoking history: Current every day smoker Have you smoked in the past 12 months: Yes Aproximately how many cigarettes per day: 10 Cigars Per Day: 0 Hx Chewing Tobacco Use: No Initiated information on smoking cessation: Yes 'Breaking Loose' booklet given: 08/26/19 - Substance & Tx. History Hx Alcohol Use: Yes Hx Substance Use: Yes Substance Use Type: Cocaine, Opiates Hx Substance Use Treatment: Yes ([facility]) - Substances abused Heroin Substance route: Inhalation Frequency: Daily Amount used: 4 BAGS Age of first use: 47 Date of last use: 08/26/19 Crack Substance route: Smoking Frequency: Daily Amount used: $50 Age of first use: 32 Date of last use: 08/26/19 Alcohol Substance route: Oral Frequency: Daily Amount used: 3 1/2 pints of vodka/gin Age of first use: 16 Date of last use: 08/26/19 Admission Physical Exam [facility] - Vital Signs Vital Signs: Vital Signs - 24 hr 08/26/19 18:04 Temperature 97.7 F Pulse Rate 81 Respiratory 18 Rate Blood Pressure 108/70 - Physical General Appearance: Yes: Moderate Distress, Thin, Anxious HEENTM: Yes: Within Normal Limits Respiratory: Yes: Lungs Clear, Normal Breath Sounds, No Respiratory Distress Neck: Yes: Supple Breast: Yes: Breast Exam Deferred Cardiology: Yes: Regular Rhythm, Regular Rate Abdominal: Yes: Normal Bowel Sounds, Soft Genitourinary: Yes: Within Normal Limits Back: Yes: Normal Inspection Musculoskeletal: Yes: Within Normal Limits Extremities: Yes: Normal Inspection Neurological: Yes: Within Normal Limits, Alert, Normal Mood/Affect Integumentary: Yes: Warm Lymphatic: Yes: Within Normal Limits - Diagnostic (1) Nicotine dependence Current Visit: Yes Status: Acute Qualifiers: Nicotine product type: cigarettes Substance use status: uncomplicated Qualified Code(s): F17.210 - Nicotine dependence, cigarettes, uncomplicated (2) Asthma Current Visit: Yes Status: Chronic Qualifiers: Asthma severity: mild Asthma persistence: intermittent Asthma complication type: unspecified Qualified Code(s): J45.20 - Mild intermittent asthma, uncomplicated (3) BPH (benign prostatic hyperplasia) Current Visit: Yes Status: Chronic Qualifiers: Lower urinary tract symptom presence: symptoms present Lower urinary tract symptom detail: urinary hesitancy Qualified Code(s): N40.1 - Benign prostatic hyperplasia with lower urinary tract symptoms; R39.11 - Hesitancy of micturition (4) History of seizures Current Visit: No Status: Chronic Comment: RELATED TO DRUG USE (5) Herniated lumbar intervertebral disc Current Visit: No Status: Chronic Cleared for Admission [facility] - Detox or Rehab [facility] Level of Care: Medically Managed Detox Regimen/Protocol: Librium Claeared for Rehab Admission: No Breathalyzer - Breathalyzer Breathalyzer: 0 Urine Drug Screen - Test Device Lot number: [id number] Expiration date: 05/05/21 - Control Is test valid?: Yes - Results Drug screen NEGATIVE: Yes Urine drug screen results: SOL-Cocaine, MOP-Opiates, OXY-Oxycodone Inpatient Rehab Admission - Rehab Decision to Admit Inpatient rehab admission?: No
[2019-08-26] MEDS ORDERED: IBUPROFEN 400 MG TABLET (FP) PO PRN (20:42)
[2019-08-26] MEDS ORDERED: MAGNESIUM CITRATE 300 ML BOTTLE PO PRN (20:42)
[2019-08-26] MEDS ORDERED: chlordiazePOXIDE HCL 25 MG CAPSULE PO PRN (20:42)
[2019-08-26] MEDS ORDERED: MAGNESIUM HYDROX 2400MG/30ML ORAL SUSPENSION 30 ML CUP PO PRN (20:42)
[2019-08-26] MEDS ORDERED: MAG HYDROX/AL HYDROX/SIMETH 30 ML UNIT-DOSE CUP PO PRN (20:42)
[2019-08-26] MEDS ORDERED: MELATONIN 5 MG TABLETS PO PRN (20:42)
[2019-08-26] MEDS ORDERED: hydrOXYzine PAMOATE 25 MG CAPSULE (FP) PO PRN (20:42)
[2019-08-26] MEDS ORDERED: MENTHOL/PHENOL 1 EACH UD MM PRN (20:42)
[2019-08-26] MEDS ORDERED: ACETAMINOPHEN 325 MG TABLET (FP) PO PRN ×2 (20:42)
[2019-08-26] MEDS ORDERED: NICOTINE POLACRILEX 2 MG GUM BUC PRN (20:42)
[2019-08-26] MEDS ORDERED: BISMUTH SUBSALICYLATE 524 MG/30 ML UD PO PRN (20:42)
[2019-08-26] MEDS ORDERED: ALBUTEROL SO4 8 GM HFA INHALER IH PRN (20:44)
[2019-08-26] MEDS: BUDESONIDE/FORMETEROL FUMARATE 80/4.5 mcg INHALER IH SCH (21:59)
[2019-08-26] MEDS: GABAPENTIN 300 MG CAPSULE (FP) PO SCH (22:00)
[2019-08-26] MEDS: THIAMINE HCL 100 MG TABLET (FP) PO SCH (22:00)
[2019-08-26] MEDS: chlordiazePOXIDE HCL 25 MG CAPSULE PO SCH (22:00)
[2019-08-27] MEDS: chlordiazePOXIDE HCL 25 MG CAPSULE PO SCH ×4 (06:24→22:24)
--- NOTE | 2019-08-27 11:00 | PN ---
S CIWA - CIWA Score Nausea/Vomitin-Mild Nausea/No Vomiting Muscle Tremors: 2 Anxiety: 2 Agitation: 2 Paroxysmal Sweats: No Perspiration Orientation: 0-Oriented Tacttile Disturbances: 1-Very Mild Itch/Numbness Auditory Disturbances: 0-None Visual Disturbances: 0-None Headache: 1-Very Mild CIWA-Ar Total Score: 9 [facility] Progress Note (SOAP) Subjective: alert,irritable,anxious,interrupted sleep,pain in the back Objective: 08/27/19 10:57 Vital Signs Temperature 98.4 F 08/27/19 09:33 Pulse Rate 70 08/27/19 09:33 Respiratory Rate 18 08/27/19 09:33 Blood Pressure 128/70 08/27/19 09:33 O2 Sat by Pulse Oximetry (%) Assessment: 08/27/19 10:58 withdrawal symptom Plan: continue detox librium regimen,on suboxone 8mg/2mg sl tid film on I stop , ordered
[2019-08-27] MEDS: NICOTINE 14 MG/24 HOURS TOPICAL PATCH TD SCH (11:15)
[2019-08-27] MEDS: TAMSULOSIN HCL 0.4 MG CAP PO SCH (11:16)
[2019-08-27] MEDS: PRENATAL VITAMINS W/ FOLIC ACID TABLET (FP) PO SCH (11:16)
[2019-08-27] MEDS: GABAPENTIN 300 MG CAPSULE (FP) PO SCH ×2 (11:16→22:24)
[2019-08-27] MEDS: BUDESONIDE/FORMETEROL FUMARATE 80/4.5 mcg INHALER IH SCH ×2 (11:18→22:26)
[2019-08-27 12:10] LABS: HEMATOCRIT 38.4 % (35.4-49); HEMOGLOBIN 12.6 GM/dL (11.7-16.9); MCHC 32.8 g/dl (32.0-35.9); MEAN CELL VOLUME 97.6 fl (80-96); MEAN PLT VOLUME 7.6 fl (7.5-11.1); PLATELET COUNT 289 K/MM3 (134-434); RBC 3.94 M/mm3 (4.00-5.60); RDW 13.6 % (11.9-15.9); WHITE BLOOD COUNT 3.1 K/mm3 (4.0-10.0)
[2019-08-27 12:26] LABS: BILIRUBIN,TOTAL 0.4 mg/dL (0.2-1); BLOOD UREA NITROGEN 9.8 mg/dL (7-18); CALCIUM 8.7 mg/dL (8.5-10.1); POTASSIUM 4.4 mmol/L (3.5-5.1); TOT PROT 5.9 g/dl (6.4-8.2)
--- NOTE | 2019-08-27 13:35 | EKG ---
Test Reason : Blood Pressure : / mmHG Vent. Rate : 052 BPM Atrial Rate : 052 BPM P-R Int : 126 ms QRS Dur : 082 ms QT Int : 432 ms P-R-T Axes : 065 065 071 degrees QTc Int : 401 ms SINUS BRADYCARDIA OTHERWISE NORMAL ECG WHEN COMPARED WITH ECG OF 26-JUN-2019 18:25, NO SIGNIFICANT CHANGE WAS FOUND Confirmed by MD Cardenas Edward ([id number]) on 08/27/2019 1:35:29 PM Referred By: Confirmed By:Nathaniel Cardenas MD
[2019-08-27] MEDS: BUPRENORPHINE/NALOXONE 8 MG/2 MG FILM PACKET SL SCH ×2 (15:00→22:24)
[2019-08-27] MEDS: THIAMINE HCL 100 MG TABLET (FP) PO SCH (22:24)
[2019-08-28] MEDS: chlordiazePOXIDE HCL 25 MG CAPSULE PO SCH ×4 (06:43→22:31)
[2019-08-28] MEDS: BUPRENORPHINE/NALOXONE 8 MG/2 MG FILM PACKET SL SCH ×3 (06:44→22:28)
[2019-08-28] MEDS: PRENATAL VITAMINS W/ FOLIC ACID TABLET (FP) PO SCH (11:15)
[2019-08-28] MEDS: LIDOCAINE 5% TOPICAL PATCH TP SCH (11:20)
[2019-08-28] MEDS: NICOTINE 14 MG/24 HOURS TOPICAL PATCH TD SCH (11:30)
[2019-08-28] MEDS: BUDESONIDE/FORMETEROL FUMARATE 80/4.5 mcg INHALER IH SCH ×2 (11:30→22:30)
[2019-08-28] MEDS: GABAPENTIN 300 MG CAPSULE (FP) PO SCH ×2 (11:30→22:28)
[2019-08-28] MEDS: TAMSULOSIN HCL 0.4 MG CAP PO SCH (11:30)
--- NOTE | 2019-08-28 11:36 | PN ---
S CIWA - CIWA Score Nausea/Vomitin-Mild Nausea/No Vomiting Muscle Tremors: 1-None Visible, but [place] Anxiety: 2 Agitation: 2 Paroxysmal Sweats: No Perspiration Orientation: 0-Oriented Tacttile Disturbances: 1-Very Mild Itch/Numbness Auditory Disturbances: 0-None Visual Disturbances: 0-None Headache: 2-Mild CIWA-Ar Total Score: 9 BHS Progress Note (SOAP) Subjective: alert,irritable,anxious,interrupted sleep,low back pain,chronic,pain in the body Objective: 08/28/19 11:33 Vital Signs Temperature 99.1 F 08/28/19 09:07 Pulse Rate 89 08/28/19 09:07 Respiratory Rate 16 08/28/19 09:07 Blood Pressure 96/62 08/28/19 09:07 O2 Sat by Pulse Oximetry (%) 08/28/19 11:34 Laboratory Last Values WBC 3.1 K/mm3 (4.0-10.0) L 08/27/19 08:40 RBC 3.94 M/mm3 (4.00-5.60) L 08/27/19 08:40 Hgb 12.6 GM/dL (11.7-16.9) 08/27/19 08:40 Hct 38.4 % (35.4-49) 08/27/19 08:40 MCV 97.6 fl (80-96) H 08/27/19 08:40 MCH 32.0 pg (25.7-33.7) 08/27/19 08:40 MCHC 32.8 g/dl (32.0-35.9) 08/27/19 08:40 RDW 13.6 % (11.9-15.9) 08/27/19 08:40 Plt Count 289 K/MM3 (134-434) 08/27/19 08:40 MPV 7.6 fl (7.5-11.1) 08/27/19 08:40 Sodium 144 mmol/L (136-145) 08/27/19 08:40 Potassium 4.4 mmol/L (3.5-5.1) 08/27/19 08:40 Chloride 112 mmol/L (98-107) H 08/27/19 08:40 Carbon Dioxide 27 mmol/L (21-32) 08/27/19 08:40 Anion Gap 6 MMOL/L (8-16) L 08/27/19 08:40 BUN 9.8 mg/dL (7-18) 08/27/19 08:40 Creatinine 1.0 mg/dL (0.55-1.3) 08/27/19 08:40 Est GFR (CKD-EPI)AfAm 97.08 08/27/19 08:40 Est GFR (CKD-EPI)NonAf 83.76 08/27/19 08:40 Random Glucose 96 mg/dL (74-106) 08/27/19 08:40 Calcium 8.7 mg/dL (8.5-10.1) 08/27/19 08:40 Total Bilirubin 0.4 mg/dL (0.2-1) 08/27/19 08:40 AST 15 U/L (15-37) 08/27/19 08:40 ALT 13 U/L (13-61) 08/27/19 08:40 Alkaline Phosphatase 87 U/L (45-117) 08/27/19 08:40 Total Protein 5.9 g/dl (6.4-8.2) L 08/27/19 08:40 Albumin 3.0 g/dl (3.4-5.0) L 08/27/19 08:40 RPR Titer Nonreactive (NONREACTIVE) 08/27/19 08:40 Assessment: 08/28/19 11:34 withdrawal symptom Plan: continue detox librium regimen and suboxone maintenance,lidoderm patch for chronic low back pain
[2019-08-28] MEDS: METHOCARBAMOL 500 MG TABLET PO PRN (16:48)
[2019-08-28 21:45] VITALS: PULSE 85
[2019-08-28] MEDS ORDERED: LIDOCAINE PATCH REMOVAL MC SCH (22:00)
[2019-08-28] MEDS: THIAMINE HCL 100 MG TABLET (FP) PO SCH (22:29)
[2019-08-29] MEDS ORDERED: chlordiazePOXIDE HCL 10 MG CAPSULE PO PRN
[2019-08-29] MEDS: METHOCARBAMOL 500 MG TABLET PO PRN (03:08)
[2019-08-29] MEDS: BUPRENORPHINE/NALOXONE 8 MG/2 MG FILM PACKET SL SCH (05:27)
[2019-08-29] MEDS: chlordiazePOXIDE HCL 10 MG CAPSULE PO SCH ×2 (05:27→10:15)
[2019-08-29 06:30] VITALS: BP 117/72; TEMP 97.3
--- NOTE | 2019-08-29 08:57 | PN ---
[facility] Progress Note Note: pt states he wants to go home and celebrate his mother birthday. Pt is still observed having withdrawals, shakes/sweats, interrupted sleep/irritable/ agitation. Pt was explained the risks of relapse, seizures, OD, DT, and or loss however, pt insisted on leaving a chose to sign out AMA.
--- NOTE | 2019-08-29 08:58 | DS ---
[facility] Detox Discharge Summary Admission Date: 08/26/19 - History Present History: Cocaine Dependence, Opioid Dependence - Physical Exam Results Vital Signs: Vital Signs Temperature 97.3 F L 08/29/19 06:29 Pulse Rate 85 08/29/19 06:29 Respiratory Rate 18 08/29/19 06:29 Blood Pressure 117/72 08/29/19 06:29 O2 Sat by Pulse Oximetry (%) Pertinent Admission Physical Exam Findings: pt arrived in withdrawals - Treatment Patient has Accepted a Rehab Referral to: pt declined rehab; referral provided - Medication Discharge Medications: Ambulatory Orders Albuterol Sulfate Inhaler - [Ventolin HFA Inhaler -] 2 inh PO Q6H PRN 06/26/19 Gabapentin [Neurontin -] 600 mg PO BID 06/26/19 Tamsulosin HCl [Flomax -] 0.4 mg PO DAILY 06/26/19 Budesonide/Formeterol Fumarate [SYMBICORT 80/4.5mcg -] 2 puff IH BID #1 inhaler 07/25/19 - Diagnosis (1) Nicotine dependence Current Visit: Yes Status: Chronic Qualifiers: Nicotine product type: cigarettes Substance use status: uncomplicated Qualified Code(s): F17.210 - Nicotine dependence, cigarettes, uncomplicated (2) Asthma Current Visit: Yes Status: Chronic Qualifiers: Asthma severity: mild Asthma persistence: intermittent Asthma complication type: unspecified Qualified Code(s): J45.20 - Mild intermittent asthma, uncomplicated (3) BPH (benign prostatic hyperplasia) Current Visit: Yes Status: Chronic Qualifiers: Lower urinary tract symptom presence: symptoms present Lower urinary tract symptom detail: urinary hesitancy Qualified Code(s): N40.1 - Benign prostatic hyperplasia with lower urinary tract symptoms; R39.11 - Hesitancy of micturition (4) Opioid dependence with withdrawal Current Visit: Yes Status: Chronic (5) Substance-induced anxiety disorder Current Visit: No Status: Acute (6) Ambulates with cane Current Visit: No Status: Chronic (7) Arthritis of both knees Current Visit: No Status: Chronic (8) Arthritis of shoulder Current Visit: No Status: Chronic (9) Cocaine dependence, uncomplicated Current Visit: Yes Status: Chronic (10) Herniated lumbar intervertebral disc Current Visit: No Status: Chronic (11) Substance induced mood disorder Current Visit: No Status: Chronic (12) Depressed affect Current Visit: No Status: Suspected - AMA Did Patient Leave Against Medical Advice: Yes
[2019-08-29] MEDS: PRENATAL VITAMINS W/ FOLIC ACID TABLET (FP) PO SCH (09:12)
[2019-08-29] MEDS: TAMSULOSIN HCL 0.4 MG CAP PO SCH (09:12)
[2019-08-29] MEDS: GABAPENTIN 300 MG CAPSULE (FP) PO SCH (09:12)
[2019-08-29] MEDS: BUDESONIDE/FORMETEROL FUMARATE 80/4.5 mcg INHALER IH SCH (10:14)
[2019-08-29] MEDS: LIDOCAINE 5% TOPICAL PATCH TP SCH (10:14)
[2019-08-29] MEDS: NICOTINE 14 MG/24 HOURS TOPICAL PATCH TD SCH (10:14)
[2019-08-30] MEDS ORDERED: chlordiazePOXIDE HCL 10 MG CAPSULE PO SCH (05:00)
[2019-08-31] MEDS ORDERED: chlordiazePOXIDE HCL 10 MG CAPSULE PO ONE (05:00)
== END 2019-08-29 09:20 | disposition home or self-care (01) | DRG 773 ==
LOC: YASAS 15:59 → Y6N 21:03
PROVIDERS: ADMIT Allergy & Immunology; ATTEND Allergy & Immunology
PROC: HZ2ZZZZ Detoxification Services for Substance Abuse Treatment (ICD-10-PCS; principal; 2019-08-26)
DX: F11.23 Opioid dependence with withdrawal (principal); F10.20 Alcohol dependence, uncomplicated; F14.20 Cocaine dependence, uncomplicated; F17.210 Nicotine dependence, cigarettes, uncomplicated; F19.280 Other psychoactive substance dependence with psychoactive substance-induced anxiety disorder; F19.24 Other psychoactive substance dependence with psychoactive substance-induced mood disorder; J45.20 Mild intermittent asthma, uncomplicated; M51.26 Other intervertebral disc displacement, lumbar region; M19.019 Primary osteoarthritis, unspecified shoulder; M17.0 Bilateral primary osteoarthritis of knee; N40.1 Benign prostatic hyperplasia with lower urinary tract symptoms; R39.11 Hesitancy of micturition; R45.89 Other symptoms and signs involving emotional state; Z99.89 Dependence on other enabling machines and devices; Z86.69 Personal history of other diseases of the nervous system and sense organs; Z59.0 Homelessness
CPT/HCPCS: 36415; 80053; 85027; 86593; 93005; 93010

== ENCOUNTER 2019-12-27 12:56 | Inpatient (IN) | payer OTHER ==
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
--- NOTE | 2019-12-27 14:08 | HP ---
COWS - Scale Resting Pulse: 0= ME 80 or Below Sweatin= Chills/Flushing Restless Observation: 1= Difficult to Sit Still Pupil Size: 1= Pupils >than Normal Bone or Joint Aches: 2= Severe Diffuse Aches Runny Nose/ Eye Tearin= Runny Nose/Eyes GI Upset > 30mins: 1= Stomach Cramp Tremor Observation: 2= Slight Tremor Visible Yawning Observation: 1= 1-2x During Session Anxiety or Irritability: 2=Irritable/Anxious Goose Flesh Skin: 0=Smooth Skin COWS Score: 13 CIWA Score Nausea/Vomitin Muscle Tremors: 3 Anxiety: 2 Agitation: 2 Paroxysmal Sweats: 1-Minimal Palms Moist Orientation: 0-Oriented Tacttile Disturbances: 1-Very Mild Itch/Numbness Auditory Disturbances: 0-None Visual Disturbances: 0-None Headache: 2-Mild CIWA-Ar Total Score: 13 - Admission Criteria OASAS Guidelines: Admission for Medically Managed Detox: Requires at least one of the followin. CIWA greater than 12 2. Seizures within the past 24 hours 3. Delirium tremens within the past 24 hours 4. Hallucinations within the past 24 hours 5. Acute intervention needed for co occurring medical disorder 6. Acute intervention needed for co occurring psychiatric disorder 7. Severe withdrawal that cannot be handled at a lower level of care (continued vomiting, continued diarrhea, abnormal vital signs) requiring intravenous medication and/or fluids 8. Admitting History and Physical - Admission Chief Complaint: i am here to get mylife better History of Present Illness: this 59 years old male with heroin,cocaine,alcohol dependence,seeking detox,no seizure,syncope need detox History Source: Patient Limitations to Obtaining History: No Limitations - Past Medical History REFINER OPERATOR: Yes: Syncope Pulmonary: Yes: Asthma Psych: Yes: Bipolar - Past Surgical History Additional Past Surgical History: left side eardrum 25 years ago laceration of left forearm with damage to nerve and tendon - Smoking History Smoking history: Current every day smoker Have you smoked in the past 12 months: Yes Aproximately how many cigarettes per day: 10 - Alcohol/Substance Use Hx Alcohol Use: Yes History of Substance Use: reports: Cocaine, Heroin - Social History Usual Living Arrangement: Yes: Other (homeless) ADL: Support Services Occupation: unemployed Admission ROS [facility]HS - HPI Chief Complaint: i need help to get my life better,to stop using heroin,cocaine and alcohol Allergies/Adverse Reactions: Allergies Allergy/AdvReac Type Severity Reaction Status Date / Time No Known Allergies Allergy Verified 08/26/19 18:02 History of Present Illness: this 59 years old male with heroin,alcohol,and cocaine dependence,withdrawal symptom, multiple admissions in detox,last 08/26/19 to 08/29/19 not complete denied seizure syncope nicotine dependence anxiety and depression laceration left forearm in 03/2019 laceration of tendon and nerve no significant period of sobriety low back pain plan for rehab after detox Exam Limitations: No Limitations - Ebola screening Have you traveled outside of the country in the last 21 days: No Have you had contact with anyone from an Ebola affected area: No Have you been sick,other than usual withdrawal symptoms: No Do you have a fever: No - Review of Systems Constitutional: Chills, Loss of Appetite, Malaise, Night Sweats, Changes in sleep, Weakness, Unintentional Wgt. Loss EENT: reports: Tearing, Nose Congestion Respiratory: reports: Other (asthma) Cardiac: reports: No Symptoms Reported GI: reports: Diarrhea, Nausea, Vomiting, Abdominal cramping : reports: No Symptoms Reported, Other (bph) Musculoskeletal: reports: Back Pain, Muscle Pain, Other (laceration of left foearm with lacertionof tndon and ulnar nerve) Integumentary: reports: Dryness Neuro: reports: Headache, Tremors Endocrine: reports: No Symptoms Reported Hematology: reports: No Symptoms Reported Psychiatric: reports: No Sypmtoms Reported, Judgement Intact, Mood/Affect Appropiate, Orientated x3, Anxious Patient History - Patient Medical History Hx Anemia: No Hx Asthma: Yes (on albuterol inhaler) Hx Chronic Obstructive Pulmonary Disease (COPD): No Hx Cancer: No Hx Cardiac Disorders: No Hx Congestive Heart Failure: No Hx Hypertension: No Hx Hypercholesterolemia: No Hx Pacemaker: No HX Cerebrovascular Accident: No Hx Seizures: No Hx Dementia: No Hx Diabetes: No Hx Gastrointestinal Disorders: No Hx Liver Disease: No Hx Genitourinary Disorders: No Hx Sexually Transmitted Disorders: No Hx Renal Disease (ESRD): No Hx Thyroid Disease: No Hx Human Immunodeficiency Virus (HIV): No (last 06/24 negative) Hx Hepatitis C: No Hx Depression: No Hx Suicide Attempt: No Hx Bipolar Disorder: Yes (NO MEDS) Hx Schizophrenia: No Other Medical History: no suicidal,no homicidal - Patient Surgical History Past Surgical History: Yes Hx Neurologic Surgery: No Hx Cataract Extraction: No Hx Cardiac Surgery: No Hx Lung Surgery: No Hx Breast Surgery: No Hx Breast Biopsy: No Hx Abdominal Surgery: No Hx Appendectomy: No Hx Cholecystectomy: No Hx Genitourinary Surgery: No Hx Section: No Hx Orthopedic Surgery: No Other Surgical History: REPAIR OF LEFT NECK LACERATION,surgry of eardrum left 25 years ago Anesthesia Reaction: No - PPD History Previous Implant?: Yes Documented Results: Negative w/o proof Implanted On Prior [facility] Admission?: No PPD to be Administered?: Yes - Smoking Cessation Smoking history: Current every day smoker Have you smoked in the past 12 months: Yes Aproximately how many cigarettes per day: 10 Cigars Per Day: 0 Hx Chewing Tobacco Use: No Initiated information on smoking cessation: Yes 'Breaking Loose' booklet given: 12/27/19 - Substance & Tx. History Hx Alcohol Use: Yes Hx Substance Use: Yes Substance Use Type: Alcohol, Cocaine, Heroin Hx Substance Use Treatment: Yes ([facility] 08/26/19 o 08/29/19) - Substances abused Heroin Substance route: Inhalation Frequency: Daily Amount used: 4 bags Age of first use: 27 Date of last use: 12/27/19 Alcohol Substance route: Oral Frequency: Daily Amount used: 2 pints of vodka/6 packs of 12 ozs Age of first use: 13 Date of last use: 12/27/19 Cocaine Substance route: Smoking Frequency: Daily Amount used: 6 bags Age of first use: 27 Date of last use: 12/27/19 Admission Physical Exam [facility] - Physical General Appearance: Yes: Moderate Distress, Tremorous, Irritable, Sweating, Anxious HEENTM: Yes: Normocephalic, GE[place]NA, Pharynx Normal Respiratory: Yes: Within Normal Limits, Lungs Clear, Normal Breath Sounds Neck: Yes: Supple, Trachea in good position, Other (scar left neck) Breast: Yes: Within Normal Limits Cardiology: Yes: Within Normal Limits, Regular Rate, S1, S2, Murmur Abdominal: Yes: Within Normal Limits, Flat, Soft, Increased Bowel Sounds Genitourinary: Yes: Within Normal Limits, Other (bph) Back: Yes: Muscle Spasm Extremities: Yes: Within Normal Limits, Normal Range of Motion, Tremors Neurological: Yes: Alert, Abnormal Cranial NS Integumentary: Yes: Dry Lymphatic: Yes: Within Normal Limits - Diagnostic (1) Opioid dependence with withdrawal Current Visit: Yes Status: Acute (2) Alcohol dependence with uncomplicated withdrawal Current Visit: Yes Status: Acute (3) Cocaine dependence, uncomplicated Current Visit: Yes Status: Chronic (4) Asthma Current Visit: No Status: Chronic Qualifiers: Asthma severity: mild Asthma persistence: intermittent Asthma complication type: unspecified Qualified Code(s): J45.20 - Mild intermittent asthma, uncomplicated (5) BPH (benign prostatic hyperplasia) Current Visit: No Status: Chronic Qualifiers: Lower urinary tract symptom presence: symptoms present Lower urinary tract symptom detail: urinary hesitancy Qualified Code(s): N40.1 - Benign prostatic hyperplasia with lower urinary tract symptoms; R39.11 - Hesitancy of micturition (6) Syncope Current Visit: Yes Status: Acute (7) Laceration of left forearm with tendon involvement Current Visit: Yes Status: Acute (8) Laceration of ulnar nerve of left upper extremity at forearm level Current Visit: Yes Status: Acute (9) Syncope Current Visit: Yes Status: Acute (10) Low back pain Current Visit: Yes Status: Acute (11) Bipolar disorder Current Visit: Yes Status: Acute Cleared for Admission S - Detox or Rehab [facility] Level of Care: Medically Managed Detox Regimen/Protocol: Methadone/Valium Breathalyzer - Breathalyzer Breathalyzer: 0 Urine Drug Screen - Test Device Lot number: [id number] Expiration date: 05/05/21 - Control Is test valid?: Yes - Results Drug screen NEGATIVE: Yes Urine drug screen results: SOL-Cocaine, MOP-Opiates, OXY-Oxycodone Inpatient Rehab Admission - Rehab Decision to Admit Inpatient rehab admission?: No
[2019-12-27] MEDS ORDERED: MENTHOL/PHENOL 1 EACH UD MM PRN (14:36)
[2019-12-27] MEDS ORDERED: MELATONIN 5 MG TABLETS PO PRN (14:36)
[2019-12-27] MEDS ORDERED: NICOTINE POLACRILEX 2 MG GUM BUC PRN (14:36)
[2019-12-27] MEDS ORDERED: hydrOXYzine PAMOATE 25 MG CAPSULE (FP) PO PRN (14:36)
[2019-12-27] MEDS ORDERED: MAG HYDROX/AL HYDROX/SIMETH 30 ML UNIT-DOSE CUP PO PRN (14:36)
[2019-12-27] MEDS ORDERED: ACETAMINOPHEN 325 MG TABLET (FP) PO PRN ×2 (14:36)
[2019-12-27] MEDS ORDERED: BISMUTH SUBSALICYLATE 524 MG/30 ML UD PO PRN (14:36)
[2019-12-27] MEDS ORDERED: MAGNESIUM HYDROX 2400MG/30ML ORAL SUSPENSION 30 ML CUP PO PRN (14:36)
[2019-12-27] MEDS ORDERED: diazePAM 5 MG TABLET PO PRN (14:36)
[2019-12-27] MEDS ORDERED: cloNIDine HCL 0.1 MG TABLET PO PRN (14:36)
[2019-12-27] MEDS ORDERED: MAGNESIUM CITRATE 300 ML BOTTLE PO PRN (14:36)
[2019-12-27 15:02] VITALS: BMI 21.6
[2019-12-27 16:31] LABS: HEMATOCRIT 39.9 % (35.4-49); HEMOGLOBIN 13.3 GM/dL (11.7-16.9); MCH 32.4 pg (25.7-33.7); MCHC 33.4 g/dl (32.0-35.9); MEAN CELL VOLUME 96.8 fl (80-96); MEAN PLT VOLUME 7.3 fl (7.5-11.1); PLATELET COUNT 343 K/MM3 (134-434); RBC 4.12 M/mm3 (4.00-5.60); RDW 13.5 % (11.9-15.9); WHITE BLOOD COUNT 4.3 K/mm3 (4.0-10.0)
[2019-12-27 16:37] LABS: ALBUMIN 3.4 g/dl (3.4-5.0); BILIRUBIN,TOTAL 0.3 mg/dL (0.2-1); BLOOD UREA NITROGEN 14.1 mg/dL (7-18); CALCIUM 8.9 mg/dL (8.5-10.1); POTASSIUM 3.6 mmol/L (3.5-5.1); TOT PROT 6.8 g/dl (6.4-8.2)
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
[2019-12-27] MEDS ORDERED: METHADONE HCL 10 MG TABLET (FOR DETOX USE ONLY) PO ONE (17:00)
[2019-12-27] MEDS: diazePAM 5 MG TABLET PO SCH (23:10)
[2019-12-27] MEDS: TAMSULOSIN HCL 0.4 MG CAP PO SCH (23:10)
[2019-12-27] MEDS: THIAMINE HCL 100 MG TABLET (FP) PO SCH (23:10)
[2019-12-27] MEDS: GABAPENTIN 300 MG CAPSULE PO SCH (23:10)
[2019-12-28] MEDS: GABAPENTIN 300 MG CAPSULE PO SCH ×3 (07:08→22:19)
[2019-12-28] MEDS: diazePAM 5 MG TABLET PO SCH ×3 (07:08→22:19)
[2019-12-28] MEDS ORDERED: METHADONE HCL 5 MG TABLET (FOR DETOX USE ONLY) PO ONE (10:00)
--- NOTE | 2019-12-28 10:57 | PN ---
S CIWA - CIWA Score Nausea/Vomitin-No Nausea/No Vomiting Muscle Tremors: 2 Anxiety: 3 Agitation: 0-Normal Activity Paroxysmal Sweats: 3 Orientation: 0-Oriented Tacttile Disturbances: 0-None Auditory Disturbances: 0-None Visual Disturbances: 0-None Headache: 2-Mild CIWA-Ar Total Score: 10 BHS COWS - Scale Resting Pulse: 0= IN 80 or Below Sweatin= Chills/Flushing Restless Observation: 1= Difficult to Sit Still Pupil Size: 0= Normal to Room Light Bone or Joint Aches: 2= Severe Diffuse Aches Runny Nose/ Eye Tearin= None GI Upset > 30mins: 0= None Tremor Observation of Outstretched Hands: 2= Slight Tremor Visible Yawning Observation: 1= 1-2x During Session Anxiety or Irritability: 2=Irritable/Anxious Goose Flesh Skin: 0=Smooth Skin COWS Score: 9 BHS Progress Note (SOAP) Subjective: c/o sweats, anxiety, headache, and muscle aches. Objective: 12/28/19 10:56 Vital Signs 12/28/19 12/28/19 12/28/19 03:30 07:44 09:11 Temperature 99.2 F 98.2 F Pulse Rate 85 97 H Respiratory 18 18 18 Rate Blood Pressure 117/63 107/66 Laboratory Last Values WBC 4.3 K/mm3 (4.0-10.0) 12/27/19 14:30 RBC 4.12 M/mm3 (4.00-5.60) 12/27/19 14:30 Hgb 13.3 GM/dL (11.7-16.9) 12/27/19 14:30 Hct 39.9 % (35.4-49) 12/27/19 14:30 MCV 96.8 fl (80-96) H 12/27/19 14:30 MCH 32.4 pg (25.7-33.7) 12/27/19 14:30 MCHC 33.4 g/dl (32.0-35.9) 12/27/19 14:30 RDW 13.5 % (11.9-15.9) 12/27/19 14:30 Plt Count 343 K/MM3 (134-434) 12/27/19 14:30 MPV 7.3 fl (7.5-11.1) L 12/27/19 14:30 Sodium 141 mmol/L (136-145) 12/27/19 14:30 Potassium 3.6 mmol/L (3.5-5.1) 12/27/19 14:30 Chloride 109 mmol/L (98-107) H 12/27/19 14:30 Carbon Dioxide 29 mmol/L (21-32) 12/27/19 14:30 Anion Gap 4 MMOL/L (8-16) L 12/27/19 14:30 BUN 14.1 mg/dL (7-18) 12/27/19 14:30 Creatinine 1.0 mg/dL (0.55-1.3) 12/27/19 14:30 Est GFR (CKD-EPI)AfAm 96.40 12/27/19 14:30 Est GFR (CKD-EPI)NonAf 83.18 12/27/19 14:30 Random Glucose 125 mg/dL (74-106) H 12/27/19 14:30 Calcium 8.9 mg/dL (8.5-10.1) 12/27/19 14:30 Total Bilirubin 0.3 mg/dL (0.2-1) 12/27/19 14:30 AST 29 U/L (15-37) 12/27/19 14:30 ALT 19 U/L (13-61) 12/27/19 14:30 Alkaline Phosphatase 102 U/L (45-117) 12/27/19 14:30 Total Protein 6.8 g/dl (6.4-8.2) 12/27/19 14:30 Albumin 3.4 g/dl (3.4-5.0) 12/27/19 14:30 RPR Titer Nonreactive (NONREACTIVE) 12/27/19 14:30 Labs noted. Assessment: 12/28/19 10:57 AOX3, in no acute respiratory distress. Full ROM, ambulating in the unit. Withdrawal symptoms. Plan: continue detox.
[2019-12-28] MEDS: PRENATAL VITAMINS W/ FOLIC ACID TABLET (FP) PO SCH (11:10)
[2019-12-28] MEDS: METHOCARBAMOL 500 MG TABLET PO PRN ×2 (11:12→17:54)
[2019-12-28] MEDS: IBUPROFEN 400 MG TABLET (FP) PO PRN (16:48)
[2019-12-28] MEDS: ALBUTEROL SO4 HFA INHALER IH PRN (21:42)
[2019-12-28] MEDS: TAMSULOSIN HCL 0.4 MG CAP PO SCH (22:19)
[2019-12-28] MEDS: THIAMINE HCL 100 MG TABLET (FP) PO SCH (22:19)
[2019-12-29] MEDS: METHOCARBAMOL 500 MG TABLET PO PRN ×2 (04:49→17:16)
[2019-12-29] MEDS: GABAPENTIN 300 MG CAPSULE PO SCH ×3 (07:03→22:09)
[2019-12-29] MEDS: diazePAM 5 MG TABLET PO SCH ×2 (07:03→17:15)
[2019-12-29] MEDS: IBUPROFEN 400 MG TABLET (FP) PO PRN (07:32)
[2019-12-29] MEDS ORDERED: METHADONE HCL 10 MG TABLET (FOR DETOX USE ONLY) PO ONE (10:00)
--- NOTE | 2019-12-29 10:22 | PN ---
S CIWA - CIWA Score Nausea/Vomitin-No Nausea/No Vomiting Muscle Tremors: 1-None Visible, but [place] Anxiety: 2 Agitation: 0-Normal Activity Paroxysmal Sweats: 2 Orientation: 0-Oriented Tacttile Disturbances: 0-None Auditory Disturbances: 0-None Visual Disturbances: 1-Very Mild Sensitivity Headache: 0-None Present CIWA-Ar Total Score: 6 BHS COWS - Scale Resting Pulse: 1= [place] 81-100 Sweatin= Chills/Flushing Restless Observation: 0= Sits Still Pupil Size: 0= Normal to Room Light Bone or Joint Aches: 1= Mild Discomfort Runny Nose/ Eye Tearin= None GI Upset > 30mins: 1= Stomach Cramp Tremor Observation of Outstretched Hands: 1= Tremor [place], Not Seen Yawning Observation: 0= None Anxiety or Irritability: 1=Feels Anxious/Irritable Goose Flesh Skin: 0=Smooth Skin COWS Score: 6 S Progress Note (SOAP) Subjective: 59 years old male admitted on 12/27/19 for alcohol and opiate withdrawal sx management treating with valium and methadone detox regiments feeling better today right hand dorsal superficial skin abrasion healed scar noted bacitracin topical encourage to keep the area clean and dry report stuffy nose in the morning and at night ocean nasal spray Objective: 12/29/19 10:25 Vital Signs Temperature 96.7 F L 12/29/19 09:05 Pulse Rate 95 H 12/29/19 09:05 Respiratory Rate 18 12/29/19 09:05 Blood Pressure 107/65 12/29/19 09:05 O2 Sat by Pulse Oximetry (%) Laboratory Last Values WBC 4.3 K/mm3 (4.0-10.0) 12/27/19 14:30 RBC 4.12 M/mm3 (4.00-5.60) 12/27/19 14:30 Hgb 13.3 GM/dL (11.7-16.9) 12/27/19 14:30 Hct 39.9 % (35.4-49) 12/27/19 14:30 MCV 96.8 fl (80-96) H 12/27/19 14:30 MCH 32.4 pg (25.7-33.7) 12/27/19 14:30 MCHC 33.4 g/dl (32.0-35.9) 12/27/19 14:30 RDW 13.5 % (11.9-15.9) 12/27/19 14:30 Plt Count 343 K/MM3 (134-434) 12/27/19 14:30 MPV 7.3 fl (7.5-11.1) L 12/27/19 14:30 Sodium 141 mmol/L (136-145) 12/27/19 14:30 Potassium 3.6 mmol/L (3.5-5.1) 12/27/19 14:30 Chloride 109 mmol/L (98-107) H 12/27/19 14:30 Carbon Dioxide 29 mmol/L (21-32) 12/27/19 14:30 Anion Gap 4 MMOL/L (8-16) L 12/27/19 14:30 BUN 14.1 mg/dL (7-18) 12/27/19 14:30 Creatinine 1.0 mg/dL (0.55-1.3) 12/27/19 14:30 Est GFR (CKD-EPI)AfAm 96.40 12/27/19 14:30 Est GFR (CKD-EPI)NonAf 83.18 12/27/19 14:30 Random Glucose 125 mg/dL (74-106) H 12/27/19 14:30 Calcium 8.9 mg/dL (8.5-10.1) 12/27/19 14:30 Total Bilirubin 0.3 mg/dL (0.2-1) 12/27/19 14:30 AST 29 U/L (15-37) 12/27/19 14:30 ALT 19 U/L (13-61) 12/27/19 14:30 Alkaline Phosphatase 102 U/L (45-117) 12/27/19 14:30 Total Protein 6.8 g/dl (6.4-8.2) 12/27/19 14:30 Albumin 3.4 g/dl (3.4-5.0) 12/27/19 14:30 RPR Titer Nonreactive (NONREACTIVE) 12/27/19 14:30 lab noted Assessment: 12/29/19 10:25 alcohol and opiate withdrawal Plan: valium and opiate withdrawal
[2019-12-29] MEDS: PRENATAL VITAMINS W/ FOLIC ACID TABLET (FP) PO SCH (11:50)
[2019-12-29] MEDS: BACITRACIN 0.9 GM PACKET TP SCH ×2 (11:52→22:10)
[2019-12-29] MEDS: SODIUM CHLORIDE NASAL SPRAY 44 ML BOTTLE NS SCH ×2 (14:19→21:19)
[2019-12-29] MEDS: ALBUTEROL SO4 HFA INHALER IH PRN (15:24)
[2019-12-29] MEDS ORDERED: ALBUTEROL SO4 0.083% IH SOL 2.5 MG/3 ML VIAL.NEB. NEB PRN (15:44)
[2019-12-29] MEDS ORDERED: ALBUTEROL SO4 0.083% IH SOL 2.5 MG/3 ML VIAL.NEB. NEB ONE (15:52)
[2019-12-29] MEDS: THIAMINE HCL 100 MG TABLET (FP) PO SCH (22:09)
[2019-12-29] MEDS: TAMSULOSIN HCL 0.4 MG CAP PO SCH (22:09)
[2019-12-30] MEDS: METHOCARBAMOL 500 MG TABLET PO PRN (01:35)
[2019-12-30] MEDS: IBUPROFEN 400 MG TABLET (FP) PO PRN (01:35)
[2019-12-30] MEDS ORDERED: METHADONE HCL 5 MG TABLET (FOR DETOX USE ONLY) PO ONE (06:00)
[2019-12-30] MEDS ORDERED: diazePAM 5 MG TABLET PO ONE (06:00)
[2019-12-30] MEDS: SODIUM CHLORIDE NASAL SPRAY 44 ML BOTTLE NS SCH (06:12)
[2019-12-30] MEDS: GABAPENTIN 300 MG CAPSULE PO SCH (06:12)
[2019-12-30 07:05] VITALS: BP 112/61; PULSE 76; TEMP 98.1
--- NOTE | 2019-12-30 08:46 | DS ---
[facility] Detox Discharge Summary Admission Date: 12/27/19 Discharge Date: 12/30/19 - History Present History: Alcohol Dependence, Opioid Dependence Additional Comments: 59 years old male admitted on 12/27/19 for alcohol and opiate withdrawal sx management treated with valium and methadone detox regiment patient left the detox unit around 0730 am today typewriter repairer has not assessed nor evaluated the patient Pertinent Past History: time for discharge 21 minutes - Physical Exam Results Vital Signs: Vital Signs Temperature 98.1 F 12/30/19 07:04 Pulse Rate 76 12/30/19 07:04 Respiratory Rate 16 12/30/19 07:04 Blood Pressure 112/61 12/30/19 07:04 O2 Sat by Pulse Oximetry (%) Pertinent Admission Physical Exam Findings: alcohol and opiate withdrawal Laboratory Last Values WBC 4.3 K/mm3 (4.0-10.0) 12/27/19 14:30 RBC 4.12 M/mm3 (4.00-5.60) 12/27/19 14:30 Hgb 13.3 GM/dL (11.7-16.9) 12/27/19 14:30 Hct 39.9 % (35.4-49) 12/27/19 14:30 MCV 96.8 fl (80-96) H 12/27/19 14:30 MCH 32.4 pg (25.7-33.7) 12/27/19 14:30 MCHC 33.4 g/dl (32.0-35.9) 12/27/19 14:30 RDW 13.5 % (11.9-15.9) 12/27/19 14:30 Plt Count 343 K/MM3 (134-434) 12/27/19 14:30 MPV 7.3 fl (7.5-11.1) L 12/27/19 14:30 Sodium 141 mmol/L (136-145) 12/27/19 14:30 Potassium 3.6 mmol/L (3.5-5.1) 12/27/19 14:30 Chloride 109 mmol/L (98-107) H 12/27/19 14:30 Carbon Dioxide 29 mmol/L (21-32) 12/27/19 14:30 Anion Gap 4 MMOL/L (8-16) L 12/27/19 14:30 BUN 14.1 mg/dL (7-18) 12/27/19 14:30 Creatinine 1.0 mg/dL (0.55-1.3) 12/27/19 14:30 Est GFR (CKD-EPI)AfAm 96.40 12/27/19 14:30 Est GFR (CKD-EPI)NonAf 83.18 12/27/19 14:30 Random Glucose 125 mg/dL (74-106) H 12/27/19 14:30 Calcium 8.9 mg/dL (8.5-10.1) 12/27/19 14:30 Total Bilirubin 0.3 mg/dL (0.2-1) 12/27/19 14:30 AST 29 U/L (15-37) 12/27/19 14:30 ALT 19 U/L (13-61) 12/27/19 14:30 Alkaline Phosphatase 102 U/L (45-117) 12/27/19 14:30 Total Protein 6.8 g/dl (6.4-8.2) 12/27/19 14:30 Albumin 3.4 g/dl (3.4-5.0) 12/27/19 14:30 RPR Titer Nonreactive (NONREACTIVE) 12/27/19 14:30 Vital Signs Temperature 98.1 F 12/30/19 07:04 Pulse Rate 76 12/30/19 07:04 Respiratory Rate 16 12/30/19 07:04 Blood Pressure 112/61 12/30/19 07:04 O2 Sat by Pulse Oximetry (%) lab noted - Treatment Hospital Course: Detox Protocol Followed, Detoxed Safely, Responded well, Discharged Condition Good, Rehab Referral Accepted Patient has Accepted a Rehab Referral to: [facility] - Medication Discharge Medications: Ambulatory Orders Albuterol Sulfate Inhaler - [Ventolin HFA Inhaler -] 2 inh PO Q6H PRN 06/26/19 Gabapentin [Neurontin -] 600 mg PO BID 06/26/19 Tamsulosin HCl [Flomax -] 0.4 mg PO DAILY 06/26/19 Budesonide/Formeterol Fumarate [SYMBICORT 80/4.5mcg -] 2 puff IH BID #1 inhaler 07/25/19 Naloxone HCl [Narcan] 4 mg NS ASDIR PRN #1 spray 12/29/19 - Diagnosis (1) Alcohol dependence with uncomplicated withdrawal Status: Acute (2) Opioid dependence with withdrawal Status: Acute (3) Ambulates with cane Status: Chronic (4) Asthma Status: Chronic Qualifiers: Asthma severity: mild Asthma persistence: intermittent Asthma complication type: with status asthmaticus Qualified Code(s): J45.22 - Mild intermittent asthma with status asthmaticus (5) BPH (benign prostatic hyperplasia) Status: Chronic Qualifiers: Lower urinary tract symptom presence: symptoms present Lower urinary tract symptom detail: urinary hesitancy Qualified Code(s): N40.1 - Benign prostatic hyperplasia with lower urinary tract symptoms; R39.11 - Hesitancy of micturition (6) Nicotine dependence Status: Acute Qualifiers: Nicotine product type: cigarettes Substance use status: in withdrawal Qualified Code(s): F17.213 - Nicotine dependence, cigarettes, with withdrawal (7) Substance induced mood disorder Status: Suspected - AMA Did Patient Leave Against Medical Advice: No CIWA Score - CIWA Score Nausea/Vomitin-No Nausea/No Vomiting Muscle Tremors: 1-None Visible, but [place] Anxiety: 1-Mildly Anxious Agitation: 0-Normal Activity Paroxysmal Sweats: No Perspiration Orientation: 0-Oriented Tacttile Disturbances: 0-None Auditory Disturbances: 0-None Visual Disturbances: 1-Very Mild Sensitivity Headache: 0-None Present CIWA-Ar Total Score: 3 COWS (PN) - Opiate Withdrawal Resting Pulse: 0= [place] 80 or Below Sweatin= No chills or Flushing Restless Observation: 0= Sits Still Pupil Size: 0= Normal to Room Light Bone or Joint Aches: 1= Mild Discomfort Runny Nose/ Eye Tearin= None GI Upset > 30mins: 0= None Tremor Observation of Outstretched Hands: 1= Tremor [place], Not Seen Yawning Observation: 0= None Anxiety or Irritability: 1=Feels Anxious/Irritable Goose Flesh Skin: 0=Smooth Skin COWS Score: 3
== END 2019-12-30 07:21 | disposition home or self-care (01) | DRG 773 ==
LOC: YASAS 12:56 → Y3N 14:44
PROVIDERS: ADMIT Allergy & Immunology; ATTEND Allergy & Immunology
PROC: HZ2ZZZZ Detoxification Services for Substance Abuse Treatment (ICD-10-PCS; principal; 2019-12-27)
DX: F10.230 Alcohol dependence with withdrawal, uncomplicated (principal); F11.23 Opioid dependence with withdrawal; F14.20 Cocaine dependence, uncomplicated; F17.210 Nicotine dependence, cigarettes, uncomplicated; F19.24 Other psychoactive substance dependence with psychoactive substance-induced mood disorder; F31.9 Bipolar disorder, unspecified; I10 Essential (primary) hypertension; J45.22 Mild intermittent asthma with status asthmaticus; N40.1 Benign prostatic hyperplasia with lower urinary tract symptoms; R39.11 Hesitancy of micturition; M54.5 Low back pain; M13.89 Other specified arthritis, multiple sites; Z99.89 Dependence on other enabling machines and devices; Z59.0 Homelessness
CPT/HCPCS: 36415; 80053; 85027; 86593; 94640

== ENCOUNTER 2022-11-28 14:06 | Inpatient (IN) | payer OTHER ==
[2022-11-28 14:48] VITALS: BMI 20.5
[2022-11-28] MEDS ORDERED: BISMUTH SUBSALICYLATE 524 MG/30 ML PO PRN (15:48)
[2022-11-28] MEDS ORDERED: MAG HYDROX/AL HYDROX/SIMETH 30 ML UNIT-DOSE CUP PO PRN (15:48)
[2022-11-28] MEDS ORDERED: NICOTINE 10 MG CARTRIDGE (INHALER) IH PRN (15:48)
[2022-11-28] MEDS ORDERED: NALOXONE HCL (KLOXXADO) 8 MG SPRAY NS PRN (15:48)
[2022-11-28] MEDS ORDERED: POLYETHYLENE GLYCOL (HEALTHYLAX) 3350 17 GM PACKET PO PRN (15:48)
[2022-11-28] MEDS ORDERED: DICYCLOMINE HCL 10 MG CAPSULE PO PRN (15:48)
[2022-11-28] MEDS ORDERED: ONDANSETRON *ODT* 4 MG TABLET SL PRN (15:48)
[2022-11-28] MEDS ORDERED: LOPERAMIDE HCL 2 MG CAPSULE PO PRN (15:48)
[2022-11-28] MEDS ORDERED: BENZOCAINE/MENTHOL (CHLORASEPTIC ) LOZENGE MM PRN (15:48)
[2022-11-28] MEDS ORDERED: ACETAMINOPHEN 325 MG TABLET (FP) PO PRN (15:48)
[2022-11-28] MEDS ORDERED: MAGNESIUM HYDROX 2400MG/30ML ORAL SUSPENSION 30 ML CUP PO PRN (15:48)
[2022-11-28] MEDS ORDERED: IBUPROFEN 400 MG TABLET (FP) PO PRN (15:48)
[2022-11-28] MEDS ORDERED: hydrOXYzine PAMOATE 25 MG CAPSULE (FP) PO PRN (15:48)
[2022-11-28] MEDS ORDERED: cloNIDine HCL 0.1 MG TABLET PO ONE (21:58)
[2022-11-28] MEDS ORDERED: MELATONIN 5 MG TABLETS PO SCH (22:00)
[2022-11-28] MEDS: THIAMINE HCL 100 MG TABLET (FP) PO SCH (22:32)
[2022-11-28] MEDS: BUDESONIDE/FORMETEROL FUMARATE 80/4.5 mcg INHALER IH SCH (22:40)
[2022-11-29] MEDS: METHOCARBAMOL 500 MG TABLET PO PRN ×2 (10:54→23:00)
[2022-11-29] MEDS: IBUPROFEN 600 MG TABLET (FP) PO PRN (10:54)
[2022-11-29] MEDS: BUDESONIDE/FORMETEROL FUMARATE 80/4.5 mcg INHALER IH SCH ×2 (10:55→23:00)
[2022-11-29] MEDS: PRENATAL VITAMINS W/ FOLIC ACID TABLET (FP) PO SCH (10:55)
[2022-11-29 11:28] LABS: HEMATOCRIT 36.2 % (35.4-49); MCHC 33.1 g/dl (32.0-35.9); MEAN CELL VOLUME 96.7 fl (80-96); MEAN PLT VOLUME 7.5 fl (7.5-11.1); PLATELET COUNT 299 10^3/uL (134-434); RBC 3.74 M/mm3 (4.00-5.60); RDW 14.4 % (11.9-15.9); WHITE BLOOD COUNT 4.4 K/mm3 (4.0-10.0)
[2022-11-29 12:10] LABS: ALBUMIN 2.8 g/dl (3.4-5.0); BLOOD UREA NITROGEN 8.5 mg/dL (7-18); CALCIUM 8.6 mg/dL (8.5-10.1)
[2022-11-29 12:14] LABS: CREATININE 0.9 mg/dL (0.55-1.3)
[2022-11-29 12:15] LABS: BILIRUBIN,TOTAL 0.9 mg/dL (0.2-1)
[2022-11-29 12:16] LABS: TOT PROT 6.2 g/dl (6.4-8.2)
[2022-11-29] MEDS ORDERED: methaDONE HCL 10 MG TABLET (FOR DETOX USE ONLY) PO ONE (13:50)
[2022-11-29] MEDS: LIDOCAINE 5% TOPICAL PATCH TP SCH (14:33)
[2022-11-29] MEDS: cloNIDine HCL 0.1 MG TABLET PO PRN (16:04)
[2022-11-29] MEDS: LIDOCAINE PATCH REMOVAL MC SCH (22:55)
[2022-11-29] MEDS: ALBUTEROL SO4 HFA INHALER IH PRN (23:00)
[2022-11-29] MEDS: THIAMINE HCL 100 MG TABLET (FP) PO SCH (23:01)
[2022-11-30] MEDS: LIDOCAINE 5% TOPICAL PATCH TP SCH (09:48)
[2022-11-30] MEDS: METHOCARBAMOL 500 MG TABLET PO PRN ×2 (09:48→17:39)
[2022-11-30] MEDS: PRENATAL VITAMINS W/ FOLIC ACID TABLET (FP) PO SCH (09:48)
[2022-11-30] MEDS: ACETAMINOPHEN 325 MG TABLET (FP) PO PRN (09:50)
[2022-11-30] MEDS: BUDESONIDE/FORMETEROL FUMARATE 80/4.5 mcg INHALER IH SCH ×2 (10:00→22:14)
[2022-11-30] MEDS: cloNIDine HCL 0.1 MG TABLET PO PRN (13:46)
[2022-11-30] MEDS: ALBUTEROL SO4 HFA INHALER IH PRN (17:42)
[2022-11-30] MEDS: THIAMINE HCL 100 MG TABLET (FP) PO SCH (22:13)
[2022-11-30] MEDS: LIDOCAINE PATCH REMOVAL MC SCH (22:14)
[2022-11-30] MEDS: IBUPROFEN 600 MG TABLET (FP) PO PRN (22:16)
[2022-11-30] MEDS: MELATONIN 5 MG TABLETS PO PRN (22:17)
[2022-12-01] MEDS: IBUPROFEN 600 MG TABLET (FP) PO PRN ×2 (07:07→22:53)
[2022-12-01] MEDS: LIDOCAINE 5% TOPICAL PATCH TP SCH (09:54)
[2022-12-01] MEDS: cloNIDine HCL 0.1 MG TABLET PO PRN ×2 (09:54→17:55)
[2022-12-01] MEDS: METHOCARBAMOL 500 MG TABLET PO PRN ×2 (09:54→17:55)
[2022-12-01] MEDS: PRENATAL VITAMINS W/ FOLIC ACID TABLET (FP) PO SCH (09:54)
[2022-12-01] MEDS: BUDESONIDE/FORMETEROL FUMARATE 80/4.5 mcg INHALER IH SCH ×2 (09:55→22:37)
[2022-12-01] MEDS ORDERED: methaDONE HCL 10 MG TABLET (FOR DETOX USE ONLY) PO ONE (10:00)
[2022-12-01] MEDS ORDERED: P-EPHED 60MG/TRIPROLIDI 2.5MG TABLET PO PRN (11:13)
[2022-12-01] MEDS: THIAMINE HCL 100 MG TABLET (FP) PO SCH (22:34)
[2022-12-01] MEDS: LIDOCAINE PATCH REMOVAL MC SCH (22:34)
[2022-12-01] MEDS: MELATONIN 5 MG TABLETS PO PRN (22:35)
[2022-12-02] MEDS: IBUPROFEN 600 MG TABLET (FP) PO PRN (05:59)
[2022-12-02] MEDS: ALBUTEROL SO4 HFA INHALER IH PRN (06:01)
[2022-12-02 06:17] VITALS: TEMP 98.9
[2022-12-02 09:16] VITALS: BP 138/63; PULSE 100; RESP 16
[2022-12-02] MEDS: LIDOCAINE 5% TOPICAL PATCH TP SCH (09:17)
[2022-12-02] MEDS: BUDESONIDE/FORMETEROL FUMARATE 80/4.5 mcg INHALER IH SCH (09:18)
[2022-12-02] MEDS: ACETAMINOPHEN 325 MG TABLET (FP) PO PRN (09:18)
[2022-12-02] MEDS: PRENATAL VITAMINS W/ FOLIC ACID TABLET (FP) PO SCH (09:18)
== END 2022-12-02 10:46 | disposition home or self-care (01) | DRG 773 ==
LOC: YASAS 14:06 → Y6N 16:48
PROVIDERS: ADMIT Allergy & Immunology; ATTEND Surgery
PROC: HZ2ZZZZ Detoxification Services for Substance Abuse Treatment (ICD-10-PCS; principal; 2022-11-28)
DX: F11.23 Opioid dependence with withdrawal (principal); F10.230 Alcohol dependence with withdrawal, uncomplicated; F14.20 Cocaine dependence, uncomplicated; F17.210 Nicotine dependence, cigarettes, uncomplicated; F31.9 Bipolar disorder, unspecified; J45.909 Unspecified asthma, uncomplicated; N40.1 Benign prostatic hyperplasia with lower urinary tract symptoms; R39.11 Hesitancy of micturition; M51.36 Other intervertebral disc degeneration, lumbar region; R26.89 Other abnormalities of gait and mobility; Z99.89 Dependence on other enabling machines and devices
CPT/HCPCS: 36415; 72100-TC-FY; 80053; 85027; 86780; 87811; 93005; 93010; C9803-CS; U0003; U0005

== ENCOUNTER 2022-12-07 20:46 | Inpatient (IN) | payer OTHER ==
[2022-12-07 21:12] VITALS: BMI 22.3
[2022-12-07] MEDS ORDERED: MELATONIN 5 MG TABLETS PO PRN (21:44)
[2022-12-07] MEDS ORDERED: POLYETHYLENE GLYCOL (HEALTHYLAX) 3350 17 GM PACKET PO PRN (21:44)
[2022-12-07] MEDS ORDERED: MAG HYDROX/AL HYDROX/SIMETH 30 ML UNIT-DOSE CUP PO PRN (21:44)
[2022-12-07] MEDS ORDERED: BENZOCAINE/MENTHOL (CHLORASEPTIC ) LOZENGE MM PRN (21:44)
[2022-12-07] MEDS ORDERED: guaiFENesin 200 MG/10 ML 10 ML UNIT-DOSE CUPS PO PRN (21:44)
[2022-12-07] MEDS ORDERED: IBUPROFEN 400 MG TABLET (FP) PO PRN (21:44)
[2022-12-07] MEDS ORDERED: ACETAMINOPHEN 325 MG TABLET (FP) PO PRN (21:44)
[2022-12-07] MEDS ORDERED: MAGNESIUM HYDROX 2400MG/30ML ORAL SUSPENSION 30 ML CUP PO PRN (21:44)
[2022-12-07] MEDS ORDERED: LOPERAMIDE HCL 2 MG CAPSULE PO PRN (21:44)
[2022-12-07] MEDS ORDERED: P-EPHED 60MG/TRIPROLIDI 2.5MG TABLET PO PRN (21:44)
[2022-12-07] MEDS ORDERED: NICOTINE POLACRILEX 2 MG GUM BUC PRN (21:44)
[2022-12-07] MEDS ORDERED: ALBUTEROL SO4 HFA INHALER IH PRN (21:45)
[2022-12-07] MEDS ORDERED: THIAMINE HCL 100 MG TABLET (FP) PO SCH (22:00)
[2022-12-08] MEDS: BACITRACIN ZINC 15 GM TUBE TOPICAL OINTMENT TP SCH ×2 (01:27→09:50)
[2022-12-08] MEDS: BUDESONIDE/FORMETEROL FUMARATE 80/4.5 mcg INHALER IH SCH ×2 (01:28→09:52)
[2022-12-08 01:29] VITALS: BP 135/80; PULSE 63; RESP 18; TEMP 98.2
[2022-12-08] MEDS ORDERED: TAMSULOSIN HCL 0.4 MG CAP PO SCH (08:30)
[2022-12-08] MEDS ORDERED: PRENATAL VITAMINS W/ FOLIC ACID TABLET (FP) PO SCH (10:00)
[2022-12-08] MEDS ORDERED: LIDOCAINE 5% TOPICAL PATCH TP SCH (11:15)
[2022-12-08] MEDS ORDERED: cloNIDine HCL 0.1 MG TABLET PO PRN (14:27)
[2022-12-08] MEDS ORDERED: METHYL SALICYLATE/MENTHOL OINT 30 GM TUBE TP SCH (22:00)
[2022-12-08] MEDS ORDERED: LIDOCAINE PATCH REMOVAL MC SCH (22:00)
== END 2022-12-08 13:25 | disposition left against medical advice (07) | DRG 770 ==
LOC: YASAS 20:46 → Y5N 12-08 00:59
PROVIDERS: ADMIT Allergy & Immunology; ATTEND Psychiatry & Neurology Pain Medicine
PROC: HZ42ZZZ Group Counseling for Substance Abuse Treatment, Cognitive-Behavioral (ICD-10-PCS; principal; 2022-12-08)
DX: F11.20 Opioid dependence, uncomplicated (principal); F14.20 Cocaine dependence, uncomplicated; F17.210 Nicotine dependence, cigarettes, uncomplicated; F19.280 Other psychoactive substance dependence with psychoactive substance-induced anxiety disorder; F31.9 Bipolar disorder, unspecified; M19.019 Primary osteoarthritis, unspecified shoulder; M54.50 Low back pain, unspecified; G89.29 Other chronic pain; N40.1 Benign prostatic hyperplasia with lower urinary tract symptoms; R39.11 Hesitancy of micturition; Z99.89 Dependence on other enabling machines and devices
CPT/HCPCS: C9803-CS; U0003; U0005

== ENCOUNTER 2023-05-07 16:18 | Inpatient (IN) | payer OTHER ==
[2023-05-07 17:22] VITALS: BMI 22.3
[2023-05-07] MEDS ORDERED: NALOXONE HCL (KLOXXADO) 8 MG SPRAY NS PRN (19:54)
[2023-05-07] MEDS ORDERED: ACETAMINOPHEN 325 MG TABLET (FP) PO PRN (19:54)
[2023-05-07] MEDS ORDERED: IBUPROFEN 400 MG TABLET (FP) PO PRN (19:54)
[2023-05-07] MEDS ORDERED: AMMONIUM LACTATE 12% LOTION 225 GM BOTTLE TP PRN (19:54)
[2023-05-07] MEDS ORDERED: BENZONATATE 200 MG CAPSULE PO PRN (19:54)
[2023-05-07] MEDS ORDERED: COLLOIDAL OATMEAL 1 BAR EACH TP PRN (19:54)
[2023-05-07] MEDS ORDERED: NICOTINE 10 MG CARTRIDGE (INHALER) IH PRN (19:54)
[2023-05-07] MEDS ORDERED: BENZOCAINE/MENTHOL (CHLORASEPTIC ) LOZENGE MM PRN (19:54)
[2023-05-07] MEDS ORDERED: POLYETHYLENE GLYCOL (HEALTHYLAX) 3350 17 GM PACKET PO PRN (19:54)
[2023-05-07] MEDS ORDERED: guaiFENesin 600 MG TABLET.ER (FP) PO PRN (19:54)
[2023-05-07] MEDS ORDERED: NALOXONE HCL 0.4 MG/ML VIAL IM PRN (19:54)
[2023-05-07] MEDS ORDERED: MAG HYDROX/AL HYDROX/SIMETH 30 ML UNIT-DOSE CUP PO PRN (19:54)
[2023-05-07] MEDS ORDERED: LOPERAMIDE HCL 2 MG CAPSULE PO PRN (19:54)
[2023-05-07] MEDS ORDERED: MAGNESIUM HYDROX 2400MG/30ML ORAL SUSPENSION 30 ML CUP PO PRN (19:54)
[2023-05-07] MEDS: MELATONIN 5 MG TABLETS PO SCH (21:45)
[2023-05-07] MEDS: THIAMINE HCL 100 MG TABLET (FP) PO SCH (21:46)
[2023-05-08] MEDS: NICOTINE 14 MG/24 HOURS TOPICAL PATCH TD SCH (11:14)
[2023-05-08] MEDS: PRENATAL VITAMINS W/ FOLIC ACID TABLET (FP) PO SCH (11:14)
[2023-05-08] MEDS ORDERED: methaDONE HCL 10 MG TABLET (FOR DETOX USE ONLY) PO ONE (15:48)
[2023-05-08] MEDS: cloNIDine HCL 0.1 MG TABLET PO PRN (17:53)
[2023-05-08] MEDS: ONDANSETRON *ODT* 4 MG TABLET SL PRN (17:53)
[2023-05-08] MEDS: diazePAM 5 MG TABLET PO PRN (23:38)
[2023-05-08] MEDS: MELATONIN 5 MG TABLETS PO SCH (23:41)
[2023-05-08] MEDS: THIAMINE HCL 100 MG TABLET (FP) PO SCH (23:41)
[2023-05-09] MEDS: cloNIDine HCL 0.1 MG TABLET PO PRN (07:30)
[2023-05-09] MEDS: PRENATAL VITAMINS W/ FOLIC ACID TABLET (FP) PO SCH (10:41)
[2023-05-09] MEDS: NICOTINE 14 MG/24 HOURS TOPICAL PATCH TD SCH (10:42)
[2023-05-09] MEDS: IBUPROFEN 600 MG TABLET (FP) PO PRN (10:44)
[2023-05-09] MEDS: ONDANSETRON *ODT* 4 MG TABLET SL PRN (10:44)
[2023-05-09 11:08] LABS: MCH 29.7 pg (25.7-33.7); MCHC 31.7 g/dl (32.0-35.9); MEAN CELL VOLUME 93.5 fl (80-96); MEAN PLT VOLUME 7.7 fl (7.5-11.1); PLATELET COUNT 407 10^3/uL (134-434); RBC 4.39 M/mm3 (4.00-5.60); RDW 16.3 % (11.9-15.9); WHITE BLOOD COUNT 6.9 K/mm3 (4.0-10.0)
[2023-05-09 11:19] LABS: POTASSIUM 4.2 mmol/L (3.5-5.1)
[2023-05-09 11:22] LABS: ALBUMIN 2.9 g/dl (3.4-5.0); BLOOD UREA NITROGEN 12.1 mg/dL (7-18); CALCIUM 9.6 mg/dL (8.5-10.1)
[2023-05-09 11:25] LABS: CREATININE 0.8 mg/dL (0.55-1.3)
[2023-05-09 11:27] LABS: BILIRUBIN,TOTAL 1.1 mg/dL (0.2-1); TOT PROT 7.3 g/dl (6.4-8.2)
[2023-05-09 11:41] LABS: ANISOCYTOSIS 0; HELMET CELLS 0; HOWELL-JOLLY BODIES 0; MACROCYTOSIS 0; OVALOCYTE 0; ROULEAU 0; SICKELED CELLS 0; TARGET CELLS 0; TEAR DROP CELLS 0; TOXIC GRANULATION 0
[2023-05-09 21:18] LABS: URINE APPEARANCE CLOUDY; URINE BILIRUBIN NEGATIVE (NEGATIVE); URINE COLOR YELLOW; URINE GLUCOSE (UA) NEGATIVE (NEGATIVE); URINE KETONE NEGATIVE (NEGATIVE); URINE LEUK ESTERASE NEGATIVE (NEGATIVE); URINE NITRITE NEGATIVE (NEGATIVE); URINE PROTEIN TRACE (NEGATIVE); URINE UROBILINOGEN 0.2 mg/dL (0.2-1.0)
[2023-05-09] MEDS: THIAMINE HCL 100 MG TABLET (FP) PO SCH (22:17)
[2023-05-09] MEDS: MELATONIN 5 MG TABLETS PO SCH (22:17)
[2023-05-09] MEDS: diazePAM 5 MG TABLET PO PRN (22:17)
[2023-05-10] MEDS: IBUPROFEN 600 MG TABLET (FP) PO PRN ×2 (06:16→22:48)
[2023-05-10] MEDS ORDERED: methaDONE HCL 10 MG TABLET (FOR DETOX USE ONLY) PO ONE (10:00)
[2023-05-10] MEDS: PRENATAL VITAMINS W/ FOLIC ACID TABLET (FP) PO SCH (10:47)
[2023-05-10] MEDS: NICOTINE 14 MG/24 HOURS TOPICAL PATCH TD SCH (10:48)
[2023-05-10] MEDS: ALBUTEROL SO4 HFA INHALER IH PRN (12:40)
[2023-05-10] MEDS: BUDESONIDE/FORMETEROL FUMARATE 80/4.5 mcg INHALER IH SCH ×2 (12:43→22:51)
[2023-05-10] MEDS: TAMSULOSIN HCL 0.4 MG CAP PO SCH (12:45)
[2023-05-10] MEDS: THIAMINE HCL 100 MG TABLET (FP) PO SCH (22:46)
[2023-05-10] MEDS: MELATONIN 5 MG TABLETS PO SCH (22:46)
[2023-05-10] MEDS: diazePAM 5 MG TABLET PO PRN (22:47)
[2023-05-11] MEDS: IBUPROFEN 600 MG TABLET (FP) PO PRN (05:53)
[2023-05-11] MEDS: ALBUTEROL SO4 HFA INHALER IH PRN (05:54)
[2023-05-11 06:20] VITALS: RESP 16
[2023-05-11] MEDS: TAMSULOSIN HCL 0.4 MG CAP PO SCH (07:07)
[2023-05-11 09:03] VITALS: BP 100/60; PULSE 82; TEMP 97.6
[2023-05-11] MEDS: PRENATAL VITAMINS W/ FOLIC ACID TABLET (FP) PO SCH (10:27)
[2023-05-11] MEDS: NICOTINE 14 MG/24 HOURS TOPICAL PATCH TD SCH (10:28)
[2023-05-11] MEDS: BUDESONIDE/FORMETEROL FUMARATE 80/4.5 mcg INHALER IH SCH (10:31)
[2023-05-11] MEDS: diazePAM 5 MG TABLET PO PRN (10:31)
[2023-05-12] MEDS ORDERED: methaDONE HCL 10 MG TABLET (FOR DETOX USE ONLY) PO ONE (10:00)
== END 2023-05-11 13:47 | disposition left against medical advice (07) | DRG 770 ==
LOC: YASAS 16:18 → Y3W 19:58 → Y3N 05-08 13:13
PROVIDERS: ADMIT Allergy & Immunology; ATTEND Surgery
PROC: HZ2ZZZZ Detoxification Services for Substance Abuse Treatment (ICD-10-PCS; principal; 2023-05-07)
DX: F11.23 Opioid dependence with withdrawal (principal); F14.20 Cocaine dependence, uncomplicated; F17.220 Nicotine dependence, chewing tobacco, uncomplicated; F19.24 Other psychoactive substance dependence with psychoactive substance-induced mood disorder; F31.9 Bipolar disorder, unspecified; J45.909 Unspecified asthma, uncomplicated; M54.50 Low back pain, unspecified; G89.29 Other chronic pain; N40.1 Benign prostatic hyperplasia with lower urinary tract symptoms; R39.11 Hesitancy of micturition; Z86.59 Personal history of other mental and behavioral disorders; Z99.89 Dependence on other enabling machines and devices; Z56.0 Unemployment, unspecified; Z59.00 Homelessness unspecified
CPT/HCPCS: 36415; 80053; 81003; 85025; 87635; Q0162

== ENCOUNTER 2023-07-03 16:54 | Inpatient (IN) | payer OTHER ==
[2023-07-03 17:19] VITALS: BMI 23.0
[2023-07-03] MEDS ORDERED: BENZONATATE 200 MG CAPSULE PO PRN (19:01)
[2023-07-03] MEDS ORDERED: ACETAMINOPHEN 325 MG TABLET (FP) PO PRN (19:01)
[2023-07-03] MEDS ORDERED: guaiFENesin 600 MG TABLET.ER (FP) PO PRN (19:01)
[2023-07-03] MEDS ORDERED: BISMUTH SUBSALICYLATE 524 MG/30 ML PO PRN (19:01)
[2023-07-03] MEDS ORDERED: POLYETHYLENE GLYCOL (HEALTHYLAX) 3350 17 GM PACKET PO PRN (19:01)
[2023-07-03] MEDS ORDERED: hydrOXYzine PAMOATE 25 MG CAPSULE (FP) PO PRN (19:01)
[2023-07-03] MEDS ORDERED: IBUPROFEN 600 MG TABLET (FP) PO PRN (19:01)
[2023-07-03] MEDS ORDERED: P-EPHED 60MG/TRIPROLIDI 2.5MG TABLET PO PRN (19:01)
[2023-07-03] MEDS ORDERED: NICOTINE POLACRILEX 2 MG GUM BUC PRN (19:01)
[2023-07-03] MEDS ORDERED: METHOCARBAMOL 500 MG TABLET PO PRN (19:01)
[2023-07-03] MEDS ORDERED: NALOXONE HCL 0.4 MG/ML VIAL IM PRN (19:01)
[2023-07-03] MEDS ORDERED: MAGNESIUM HYDROX 2400MG/30ML ORAL SUSPENSION 30 ML CUP PO PRN (19:01)
[2023-07-03] MEDS ORDERED: DICYCLOMINE HCL 10 MG CAPSULE PO PRN (19:01)
[2023-07-03] MEDS ORDERED: LOPERAMIDE HCL 2 MG CAPSULE PO PRN (19:01)
[2023-07-03] MEDS ORDERED: MAG HYDROX/AL HYDROX/SIMETH 30 ML UNIT-DOSE CUP PO PRN (19:01)
[2023-07-03] MEDS ORDERED: BENZOCAINE/MENTHOL (CHLORASEPTIC ) LOZENGE MM PRN (19:01)
[2023-07-03] MEDS ORDERED: IBUPROFEN 400 MG TABLET (FP) PO PRN (19:01)
[2023-07-03] MEDS ORDERED: NALOXONE HCL (KLOXXADO) 8 MG SPRAY NS PRN (19:01)
[2023-07-03] MEDS: MELATONIN 5 MG TABLETS PO SCH (22:28)
[2023-07-03] MEDS: THIAMINE HCL 100 MG TABLET (FP) PO SCH (22:28)
[2023-07-04] MEDS ORDERED: cloNIDine HCL 0.1 MG TABLET PO ONE (08:00)
[2023-07-04] MEDS ORDERED: methaDONE HCL 10 MG TABLET (FOR DETOX USE ONLY) PO ONE (10:15)
[2023-07-04 10:44] LABS: HEMATOCRIT 38.3 % (35.4-49); HEMOGLOBIN 12.7 GM/dL (11.7-16.9); MCH 31.1 pg (25.7-33.7); MCHC 33.2 g/dl (32.0-35.9); MEAN CELL VOLUME 93.5 fl (80-96); MEAN PLT VOLUME 7.1 fl (7.5-11.1); PLATELET COUNT 309 10^3/uL (134-434); RBC 4.09 M/mm3 (4.00-5.60); RDW 15.9 % (11.9-15.9); WHITE BLOOD COUNT 4.7 K/mm3 (4.0-10.0)
[2023-07-04] MEDS: PRENATAL VITAMINS W/ FOLIC ACID TABLET (FP) PO SCH (10:48)
[2023-07-04] MEDS: cloNIDine HCL 0.1 MG TABLET PO PRN ×3 (10:48→22:43)
[2023-07-04] MEDS: diazePAM 5 MG TABLET PO PRN ×3 (10:48→22:42)
[2023-07-04 11:00] LABS: POTASSIUM 4.1 mmol/L (3.5-5.1)
[2023-07-04 11:07] LABS: CALCIUM 8.9 mg/dL (8.5-10.1)
[2023-07-04 11:08] LABS: ALBUMIN 3.2 g/dl (3.4-5.0); BLOOD UREA NITROGEN 9.4 mg/dL (7-18)
[2023-07-04 11:11] LABS: CREATININE 0.9 mg/dL (0.55-1.3)
[2023-07-04 11:12] LABS: TOT PROT 6.8 g/dl (6.4-8.2)
[2023-07-04 11:13] LABS: BILIRUBIN,TOTAL 0.8 mg/dL (0.2-1)
[2023-07-04] MEDS ORDERED: ONDANSETRON 4 MG/2 ML VIAL IM PRN (12:59)
[2023-07-04] MEDS ORDERED: PROCHLORPERAZINE INJECTION 10 MG/2 ML VIAL IM ONE ×2 (16:31→19:45)
[2023-07-04] MEDS: ONDANSETRON *ODT* 4 MG TABLET SL PRN (17:13)
[2023-07-04] MEDS: THIAMINE HCL 100 MG TABLET (FP) PO SCH (22:40)
[2023-07-04] MEDS: MELATONIN 5 MG TABLETS PO SCH (22:40)
[2023-07-05 10:04] VITALS: TEMP 98.4
[2023-07-05] MEDS: ONDANSETRON *ODT* 4 MG TABLET SL PRN (13:44)
[2023-07-05] MEDS: PRENATAL VITAMINS W/ FOLIC ACID TABLET (FP) PO SCH (13:46)
[2023-07-05] MEDS: cloNIDine HCL 0.1 MG TABLET PO PRN (15:47)
[2023-07-05 17:10] VITALS: BP 144/103; PULSE 78; RESP 16
[2023-07-05] MEDS: amLODIPine BESYLATE 5 MG TABLET (FP) PO SCH (17:44)
[2023-07-05] MEDS: MELATONIN 5 MG TABLETS PO SCH (22:28)
[2023-07-05] MEDS: THIAMINE HCL 100 MG TABLET (FP) PO SCH (22:28)
[2023-07-06] MEDS ORDERED: methaDONE HCL 10 MG TABLET (FOR DETOX USE ONLY) PO ONE (10:00)
[2023-07-06] MEDS: amLODIPine BESYLATE 5 MG TABLET (FP) PO SCH (10:24)
[2023-07-06] MEDS: PRENATAL VITAMINS W/ FOLIC ACID TABLET (FP) PO SCH (10:24)
[2023-07-08] MEDS ORDERED: methaDONE HCL 10 MG TABLET (FOR DETOX USE ONLY) PO ONE (10:00)
== END 2023-07-06 15:00 | disposition short-term general hospital (02) | DRG 773 ==
LOC: YASAS 16:54 → Y3N 19:27
PROVIDERS: ADMIT Allergy & Immunology; ATTEND Surgery
PROC: HZ2ZZZZ Detoxification Services for Substance Abuse Treatment (ICD-10-PCS; principal; 2023-07-03)
DX: F11.23 Opioid dependence with withdrawal (principal); F14.20 Cocaine dependence, uncomplicated; F17.210 Nicotine dependence, cigarettes, uncomplicated; F31.9 Bipolar disorder, unspecified; J45.909 Unspecified asthma, uncomplicated; N40.0 Benign prostatic hyperplasia without lower urinary tract symptoms; R11.10 Vomiting, unspecified
CPT/HCPCS: 36415; 80053; 82962; 85027; 86780; 87635; 87811; Q0162

== ENCOUNTER 2023-07-05 19:55 | Inpatient (IN) | payer OTHER ==
[2023-07-05] MEDS ORDERED: SODIUM CHLORIDE 0.9% 500 ML INFUS.BAG IV ONE (22:27)
[2023-07-05 23:08] LABS: BASO % 0.8 % (0-2.0); EOS % 0.7 % (0-4.5); HEMATOCRIT 41.9 % (35.4-49); HEMOGLOBIN 13.9 GM/dL (11.7-16.9); LYMPH % 20.8 % (8-40); MCH 30.8 pg (25.7-33.7); MCHC 33.1 g/dl (32.0-35.9); MEAN CELL VOLUME 92.8 fl (80-96); MEAN PLT VOLUME 6.5 fl (7.5-11.1); MONO % 10.3 % (3.8-10.2); NEUT % 67.4 % (42.8-82.8); PLATELET COUNT 339 10^3/uL (134-434); RBC 4.52 M/mm3 (4.00-5.60); RDW 15.7 % (11.9-15.9)
[2023-07-05 23:39] LABS: POTASSIUM 4.6 mmol/L (3.5-5.1)
[2023-07-05 23:42] LABS: ALBUMIN 2.9 g/dl (3.4-5.0); BLOOD UREA NITROGEN 23.6 mg/dL (7-18)
[2023-07-05 23:45] LABS: CREATININE 0.9 mg/dL (0.55-1.3)
[2023-07-05 23:47] LABS: BILIRUBIN,TOTAL 1.4 mg/dL (0.2-1); TOT PROT 6.8 g/dl (6.4-8.2)
[2023-07-06] MEDS ORDERED: ONDANSETRON *ODT* 4 MG TABLET SL ONE (02:29)
[2023-07-06] MEDS ORDERED: ONDANSETRON *ODT* 4 MG TABLET ONE (02:37)
[2023-07-06] MEDS ORDERED: SODIUM CHLORIDE 1,000 ML IV SCH (03:45)
[2023-07-06] MEDS ORDERED: cloNIDine HCL 0.1 MG TABLET PO PRN (03:46)
[2023-07-06 05:58] LABS: PH,URINE 6.5 (5.0-8.0); URINE APPEARANCE CLEAR; URINE BILIRUBIN NEGATIVE (NEGATIVE); URINE COLOR YELLOW; URINE GLUCOSE (UA) NEGATIVE (NEGATIVE); URINE KETONE NEGATIVE (NEGATIVE); URINE LEUK ESTERASE NEGATIVE (NEGATIVE); URINE NITRITE NEGATIVE (NEGATIVE); URINE PROTEIN TRACE (NEGATIVE); URINE UROBILINOGEN 0.2 mg/dL (0.2-1.0)
[2023-07-06] MEDS ORDERED: ALBUTEROL SO4 HFA INHALER IH PRN (06:10)
[2023-07-06 09:46] VITALS: RESP 18
[2023-07-06] MEDS ORDERED: ENOXAPARIN NA (PORCINE) 40 MG/0.4 ML DISP.SYRIN SQ SCH (10:00)
[2023-07-06] MEDS ORDERED: methaDONE HCL 10 MG TABLET (FOR DETOX USE ONLY) PO ONE (10:00)
[2023-07-06] MEDS ORDERED: ENOXAPARIN NA (PORCINE) 40 MG/0.4 ML DISP.SYRIN SQ ONE (10:38)
[2023-07-06] MEDS ORDERED: methaDONE HCL 10 MG TABLET ONE (10:38)
[2023-07-06] MEDS ORDERED: NICOTINE 21 MG/24 HOURS TOPICAL PATCH TD SCH (15:15)
[2023-07-06] MEDS ORDERED: KCL 10 MEQ IVPB 20 MEQ/200 ML INFUS.BAG IVPB ONE (15:18)
[2023-07-06] MEDS ORDERED: ACETAMINOPHEN 1000 MG/100 ML BAG IVPB ONE (15:38)
[2023-07-06] MEDS ORDERED: ACETAMINOPHEN 325 MG TABLET (FP) PO PRN (17:07)
[2023-07-06] MEDS ORDERED: NALOXONE HCL (KLOXXADO) 8 MG SPRAY NS PRN (17:07)
[2023-07-06] MEDS ORDERED: DICYCLOMINE HCL 10 MG CAPSULE PO PRN (17:07)
[2023-07-06] MEDS ORDERED: MAGNESIUM HYDROX 2400MG/30ML ORAL SUSPENSION 30 ML CUP PO PRN (17:07)
[2023-07-06] MEDS ORDERED: NALOXONE HCL 0.4 MG/ML VIAL IM PRN (17:07)
[2023-07-06] MEDS ORDERED: guaiFENesin 600 MG TABLET.ER (FP) PO PRN (17:07)
[2023-07-06] MEDS ORDERED: BISMUTH SUBSALICYLATE 524 MG/30 ML PO PRN (17:07)
[2023-07-06] MEDS ORDERED: METHOCARBAMOL 500 MG TABLET PO PRN (17:07)
[2023-07-06] MEDS ORDERED: IBUPROFEN 600 MG TABLET (FP) PO PRN (17:07)
[2023-07-06] MEDS ORDERED: LOPERAMIDE HCL 2 MG CAPSULE PO PRN (17:07)
[2023-07-06] MEDS ORDERED: hydrOXYzine PAMOATE 25 MG CAPSULE (FP) PO PRN (17:07)
[2023-07-06] MEDS ORDERED: BENZOCAINE/MENTHOL (CHLORASEPTIC ) LOZENGE MM PRN (17:07)
[2023-07-06] MEDS ORDERED: MAG HYDROX/AL HYDROX/SIMETH 30 ML UNIT-DOSE CUP PO PRN (17:07)
[2023-07-06] MEDS ORDERED: IBUPROFEN 400 MG TABLET (FP) PO PRN (17:07)
[2023-07-06] MEDS ORDERED: POLYETHYLENE GLYCOL (HEALTHYLAX) 3350 17 GM PACKET PO PRN (17:07)
[2023-07-06] MEDS ORDERED: BENZONATATE 200 MG CAPSULE PO PRN (17:07)
[2023-07-06 19:02] VITALS: BMI 25.1
[2023-07-06] MEDS ORDERED: MELATONIN 5 MG TABLETS PO SCH (22:00)
[2023-07-06] MEDS ORDERED: LACTATED RINGERS SOLUTION 1000 ML INFUS.BAG IV ONE (22:45)
[2023-07-07 06:19] VITALS: BP 98/59; PULSE 68; TEMP 98.1
[2023-07-07] MEDS ORDERED: TAMSULOSIN HCL 0.4 MG CAP PO SCH (08:30)
[2023-07-07] MEDS ORDERED: PRENATAL VITAMINS W/ FOLIC ACID TABLET (FP) PO SCH (10:00)
[2023-07-08] MEDS ORDERED: methaDONE HCL 10 MG TABLET (FOR DETOX USE ONLY) PO ONE (10:00)
== END 2023-07-07 09:11 | disposition left against medical advice (07) | DRG 421 ==
LOC: JER 19:55 → JERBED 07-06 02:38 → J5S 07-06 15:34
PROVIDERS: ADMIT Internal Medicine
DX: R62.7 Adult failure to thrive (principal); E86.0 Dehydration; N40.0 Benign prostatic hyperplasia without lower urinary tract symptoms; E43 Unspecified severe protein-calorie malnutrition; Z68.25 Body mass index [BMI] 25.0-25.9, adult; J45.909 Unspecified asthma, uncomplicated; I10 Essential (primary) hypertension; F11.23 Opioid dependence with withdrawal; F19.10 Other psychoactive substance abuse, uncomplicated; R64 Cachexia; F17.210 Nicotine dependence, cigarettes, uncomplicated; F14.20 Cocaine dependence, uncomplicated; F31.9 Bipolar disorder, unspecified
CPT/HCPCS: 36415; 70450-TC; 71045-TC-FY; 74176-TC; 80053; 81003; 82962; 83735; 84484; 85025; 93005; 93010; 99285-25; Q0162

== ENCOUNTER 2024-04-25 21:02 | Inpatient (IN) | payer BC ==
[2024-04-25 21:20] VITALS: BMI 23.0
[2024-04-25] MEDS ORDERED: ONDANSETRON *ODT* 4 MG TABLET SL PRN (22:23)
[2024-04-25] MEDS ORDERED: BENZOCAINE/MENTHOL (CHLORASEPTIC ) LOZENGE MM PRN (22:23)
[2024-04-25] MEDS ORDERED: NALOXONE HCL 0.4 MG/ML VIAL IM PRN (22:23)
[2024-04-25] MEDS ORDERED: NICOTINE POLACRILEX 2 MG GUM BUC PRN (22:23)
[2024-04-25] MEDS ORDERED: BENZONATATE 200 MG CAPSULE PO PRN (22:23)
[2024-04-25] MEDS ORDERED: POLYETHYLENE GLYCOL (HEALTHYLAX) 3350 17 GM PACKET PO PRN (22:23)
[2024-04-25] MEDS ORDERED: MAGNESIUM HYDROX 2400MG/30ML ORAL SUSPENSION 30 ML CUP PO PRN (22:23)
[2024-04-25] MEDS ORDERED: ACETAMINOPHEN 325 MG TABLET (FP) PO PRN (22:23)
[2024-04-25] MEDS ORDERED: BISMUTH SUBSALICYLATE 524 MG/30 ML PO PRN (22:23)
[2024-04-25] MEDS ORDERED: NALOXONE (NARCAN) HCL 4 MG/0.1 ML SPRAY NS PRN (22:23)
[2024-04-25] MEDS ORDERED: guaiFENesin 600 MG TABLET.ER (FP) PO PRN (22:23)
[2024-04-25] MEDS ORDERED: LOPERAMIDE HCL 2 MG CAPSULE PO PRN (22:23)
[2024-04-26] MEDS: PRENATAL VITAMINS W/ FOLIC ACID TABLET (FP) PO SCH (10:43)
[2024-04-26] MEDS: NICOTINE 14 MG/24 HOURS TOPICAL PATCH TD SCH (10:44)
[2024-04-26] MEDS ORDERED: ALBUTEROL SO4 HFA INHALER IH PRN (10:50)
[2024-04-26] MEDS: methaDONE HCL 10 MG TABLET (FOR DETOX USE ONLY) PO ONE ×2 (13:00→13:01)
[2024-04-26] MEDS: hydrOXYzine PAMOATE 25 MG CAPSULE (FP) PO PRN (16:51)
[2024-04-26] MEDS: ALBUTEROL SO4 HFA INHALER IH PRN (16:51)
[2024-04-26] MEDS: IBUPROFEN 400 MG TABLET (FP) PO PRN (16:52)
[2024-04-26] MEDS ORDERED: ASPIRIN 81 MG CHEWABLE TABLETS PO ONE (20:23)
[2024-04-26] MEDS: ASPIRIN 81 MG CHEWABLE TABLETS PO ONE (20:50)
[2024-04-26] MEDS: BUDESONIDE/FORMETEROL FUMARATE 80/4.5 mcg INHALER IH SCH (21:48)
[2024-04-26] MEDS: GABAPENTIN 300 MG CAPSULE PO SCH (21:48)
[2024-04-26] MEDS: MELATONIN 5 MG TABLETS PO SCH (21:49)
[2024-04-26] MEDS: THIAMINE 100 MG TABLET PO SCH (21:57)
[2024-04-27] MEDS: TAMSULOSIN HCL 0.4 MG CAP PO SCH (08:52)
[2024-04-27] MEDS: MAG HYDROX/AL HYDROX/SIMETH 30 ML UNIT-DOSE CUP PO PRN (17:49)
[2024-04-28] MEDS: methaDONE HCL 10 MG TABLET (FOR DETOX USE ONLY) PO ONE (10:30)
[2024-04-28] MEDS: IBUPROFEN 600 MG TABLET (FP) PO PRN (17:13)
[2024-04-29 09:21] VITALS: BP 98/60; PULSE 93; RESP 16; TEMP 97.3
== END 2024-04-29 09:42 | disposition home or self-care (01) | DRG 773 ==
LOC: YASAS 21:02 → Y6N 22:01
PROVIDERS: ADMIT Allergy & Immunology; ATTEND Surgery
PROC: HZ2ZZZZ Detoxification Services for Substance Abuse Treatment (ICD-10-PCS; principal; 2024-04-25)
DX: F11.23 Opioid dependence with withdrawal (principal); F14.20 Cocaine dependence, uncomplicated; F17.210 Nicotine dependence, cigarettes, uncomplicated; F31.9 Bipolar disorder, unspecified; G62.9 Polyneuropathy, unspecified; I10 Essential (primary) hypertension; J45.20 Mild intermittent asthma, uncomplicated; M17.0 Bilateral primary osteoarthritis of knee; Z99.89 Dependence on other enabling machines and devices
CPT/HCPCS: 80305; 93005; 93010